=== PATIENT | male | born 1985 | race Caucasian/White ===

== ENCOUNTER → 2020-10-09 10:03 | Outpatient (BNVA) | payer OTHER, SELFPAY | PROVIDERS: PCP Internal Medicine; Visit Provider Surgery | DX: L72.11 Pilar cyst (principal) | CPT/HCPCS: 99202 ==

== ENCOUNTER 2020-10-22 12:29 | Outpatient (REF) | payer OTHER, SELFPAY ==
[2020-10-22 12:32] VITALS: BP 152/91; PULSE 99; RESP 19; TEMP 36.5; O2SAT 97; BMI 29.5
--- NOTE | 2020-10-22 13:12 | W.PM.OPN ---
Operative Note Operative Note Date of Service: 10/22/20 Narrative: PROCEDURE: EXC. OF SCALP CYSTS X 2 PREOP DX: SCALP CYSTS X 2 POSTOP DX: SAME SURGEON:MELLISSA NOVOA MD 35M here for excision of 2 scalp cysts. He was seen in the office for 2 scalp cysts each about 1.5 cm in diameter. He wanted to proceed with excision and he understood the technique of excision of these cysts under local anesthesia. He was aware of the risks, benefits and alternatives and had given consent. He was brought to the Minor Procedure and placed in reclining position. One cyst was near the midline on the crown of his head and the other was to the right of this. These areas were prepped and draped. Lidocaine 1% was used for local anesthesia. I made an incision on the skin overlying the cyst on the midline using a blade 15. This was carefully carried down through the full thcikness of the skin until a cyst capsule was visualized. I then sharply dissected the cyst capsule off of the rest of the subcutaneous layer all the way posteriorly until I was able to deliver this. This was sent as a specimen. I closed the incision with full thickness nylon 3-0 sutures. I then infiltrated the area of the 2nd cyst with Lidocaine 1%. I made an incision on the skin using a rosalba 15 and crried this down through the fullthickness of the skin until a capsule was visulaized. i sharply disssected the capsule off of the subcutaneous layer with scissors until this was delivered completely. This was sent as a specimen. I clsoed the incision with full thickness nylo 3-0 sutures as well. He tolerated the procedure well. Bacitracin oitnment was applied. EBL was 3 cc. He was given wound care instructions.
--- NOTE | 2020-10-22 13:22 | PM.OP ---
Brief Operative Note Date of Service: 10/22/20 Pre-op diagnosis: SCALP CYSTS X 2 Post-op diagnosis: same Procedure: EXC OF SCALP CYSTS X 2 UNDER LOCAL ANESTHESIA Surgeon: Tariq Delgado MD Anesthesia: local Estimated blood loss (mL): 3 Pathology: other (SCALP CYSTS) Condition: stable Disposition: other (HOME)
== END 2020-10-22 12:30 | disposition home or self-care (01) ==
LOC: HO.MS 12:29
PROVIDERS: PCP Internal Medicine; Visit Provider Surgery
PROC: (CPT 11422; principal; 2020-10-22 13:00)
DX: L72.11 Pilar cyst (principal); F43.10 Post-traumatic stress disorder, unspecified; F32.9 Major depressive disorder, single episode, unspecified; Z79.899 Other long term (current) drug therapy; Z88.8 Allergy status to other drugs, medicaments and biological substances
CPT/HCPCS: 11422 ×2; 88304

== ENCOUNTER → 2020-11-05 10:23 | Outpatient (BNVA) | payer OTHER, SELFPAY | PROVIDERS: PCP Internal Medicine; Visit Provider Surgery | DX: L72.11 Pilar cyst (principal) | CPT/HCPCS: 99212 ==

== ENCOUNTER 2020-12-18 11:45 | Outpatient (RCR) | payer OTHER, SELFPAY ==
[2020-11-26 12:33] VITALS: BMI 29.5
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
--- NOTE | 2020-11-28 08:30 | PC.NURSE ---
I called and left a message with the client therapist requesting that he return my call.
--- NOTE | 2020-11-28 14:43 | PC.NURSE ---
case opened in treatment team
--- NOTE | 2020-12-01 14:58 | HO.PHPPROGNO ---
Subjective Subjective Date of Service: 12/11/20 Reason For Visit: depression Interim History: Pt reports increased symptoms of depression. He reports poor sleep. He endorses anhedonia and feeling hopeless. He reports he has been on abilify which has been partially helpful. He denies SI/HI. Diagnostics Vital Signs (24Hr): Body Mass Index 29.5 Assessment & Plan Assessment & Plan (1) Bipolar disorder: Status: Acute Code(s): F31.9 - Bipolar disorder, unspecified Assessment and Plan: 1. continue abilify 2. start remeron 15mg po qhs. Certification I certify that partial hospital treatment is medically necessary due to the symptoms and problems resulting from the patient's mental illness and the failure to treat the patient at the partial hospital level of care would likely result in the patient requiring inpatient psychiatric care which could not be prevented at a less intensive level of care. Greater than 50% of the session was spent on counseling and/or coordination of care Discharge Plan Discharge Attending provider: Demetris Ruiz Medications: Continued aripiprazole [Abilify] 10 mg tablet 10 mg PO DAILY Qty: 14 RF: 0 Held trazodone 100 mg tablet 200 mg PO BEDTIME RF: 0 Hold Instructions: Pt to trial Mirtazapine (Remeron). Will hold effective 11/26/20. Discontinued aripiprazole 2 mg tablet 2 mg PO DAILY RF: 0 No Action hydroxyzine pamoate 50 mg capsule 100 mg PO QID PRN (Reason: Anxiety) RF: 0 atomoxetine 40 mg capsule 40 mg PO QAM RF: 0 sumatriptan succinate 100 mg tablet 100 mg PO DIRECTED RF: 0 carbamazepine 200 mg capsule, ER multiphase 12 hr 400 mg PO BID RF: 0 Telehealth Telehealth Location of provider rendering services: practice address Location of patient: address on file Patient Identification confirmed using: Name, : Yes Telehealth method: video Patient verbally consented to treatment: Yes Patient verbally consented to billing insurance company: Yes Patient informed of any privacy concerns related to visit: Yes Time spent with patient (mins): 15
--- NOTE | 2020-12-09 12:45 | PC.NURSE ---
Reminded patient that he has lab work ordered that needs to be completed at [facility].
--- NOTE | 2020-12-09 14:31 | HO.PHPPROGNO ---
Subjective Subjective Date of Service: 12/09/20 Reason For Visit: depression Interim History: Reports adverse response to Remeron with increased agitation, aggression and mood lability. Discussed his failures with antidepressant trials. States his mood can be OK one moment then he can shut down quickly and become agitated. Reports VANIA-sleeping 12a-5a, often awake by 3am. Appetite unchanged, denies SI plan or intent, denies medical issues and denies substance use. Dr. Chen joined our meeting and discussed bipolar disorder with pt. Medication Compliance: Yes Side effects from medications: Yes (Remeron) Attending Groups: Yes Review of Systems Review of Systems Yes all other systems are reviewed and are negative (denies) Reports behavioral changes Psychiatric: Reports abnormal sleep pattern, Reports behavioral changes, Reports irritability, Reports mood swings and Reports suicidal ideation (denies SI, plan, intent) Mental Status Exam Mental Status Exam Patient Appearance: Appropriate Patient Orientation: Person, Place and Situation Level of Consciousness: Alert Patient Behavior: Appropriate, Talkative and Cooperative Mood Description: Labile (per pt report) Affect Description: Flat Patient Cognition Impaired: No Ability to Follow Directions: Good Speech Pattern: Clear and Spontaneous Speech Memory Description: Intact Hallucinations: None Delusions: Not Present Thought Process: Intact Thought Content: positive for Intact Depressive Symptoms: Difficulty Sleeping Judgement: Good Diagnostics Vital Signs (24Hr): Body Mass Index 29.5 Assessment & Plan Assessment & Plan (1) PTSD (post-traumatic stress disorder): Status: Acute Code(s): F43.10 - Post-traumatic stress disorder, unspecified (2) Bipolar disorder: Status: Acute Code(s): F31.9 - Bipolar disorder, unspecified Assessment and Plan: Discontinue Remeron Increase Abilify to 10 mg daily Certification I certify that partial hospital treatment is medically necessary due to the symptoms and problems resulting from the patient's mental illness and the failure to treat the patient at the partial hospital level of care would likely result in the patient requiring inpatient psychiatric care which could not be prevented at a less intensive level of care. Greater than 50% of the session was spent on counseling and/or coordination of care Discharge Plan Discharge Attending provider: Demetris Ruiz Medications: New mirtazapine [Remeron] 15 mg tablet 15 mg PO BEDTIME Qty: 10 RF: 0 aripiprazole [Abilify] 10 mg tablet 10 mg PO DAILY Qty: 14 RF: 0 Held trazodone 100 mg tablet 200 mg PO BEDTIME RF: 0 Hold Instructions: Pt to trial Mirtazapine (Remeron). Will hold effective 11/26/20. Discontinued aripiprazole 2 mg tablet 2 mg PO DAILY RF: 0 No Action hydroxyzine pamoate 50 mg capsule 100 mg PO QID PRN (Reason: Anxiety) RF: 0 atomoxetine 40 mg capsule 40 mg PO QAM RF: 0 sumatriptan succinate 100 mg tablet 100 mg PO DIRECTED RF: 0 carbamazepine 200 mg capsule, ER multiphase 12 hr 400 mg PO BID RF: 0 Telehealth Telehealth Location of provider rendering services: practice address Location of patient: address on file Patient Identification confirmed using: Name, : Yes Telehealth method: video Patient verbally consented to treatment: Yes Patient verbally consented to billing insurance company: Yes Patient informed of any privacy concerns related to visit: Yes Time spent with patient (mins): 15
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
--- NOTE | 2020-12-16 14:19 | HO.PHPPROGNO ---
Subjective Subjective Date of Service: 12/16/20 Reason For Visit: depression Interim History: The patient had reported improvement of mood lability during the day but he still has some residual irritability, especially in the afternoon. No evidence of side effects with Abilify 10 mg and he agreed to increase it up to 15 mg po daily in order to assure mood stability, fully aware of the risks and benefits. Medication Compliance: Yes Side effects from medications: Yes Review of Systems Review of Systems Yes all other systems are reviewed and are negative Mental Status Exam Mental Status Exam Patient Appearance: Well Grooomed Patient Orientation: Person, Place, Time and Situation Level of Consciousness: Awake and Appropriate Patient Behavior: Appropriate Mood Description: Calm Affect Description: Relaxed Patient Cognition Impaired: No Ability to Follow Directions: Good Speech Pattern: Clear Memory Description: Intact Hallucinations: None Delusions: Not Present Thought Process: Goal Oriented Thought Content: positive for Intact Judgement: Fair Diagnostics Vital Signs (24Hr): Body Mass Index 29.5 Assessment & Plan Assessment & Plan (1) Bipolar disorder: Status: Acute Code(s): F31.9 - Bipolar disorder, unspecified Assessment and Plan: Increase Abilify up to 15 mg po daily Keep rest the same. F/U with regular prescriber Certification I certify that partial hospital treatment is medically necessary due to the symptoms and problems resulting from the patient's mental illness and the failure to treat the patient at the partial hospital level of care would likely result in the patient requiring inpatient psychiatric care which could not be prevented at a less intensive level of care. Greater than 50% of the session was spent on counseling and/or coordination of care Discharge Plan Discharge Attending provider: Demetris Ruiz Medications: New aripiprazole [Abilify] 15 mg tablet 15 mg PO DAILY Qty: 30 RF: 0 Held trazodone 100 mg tablet 200 mg PO BEDTIME RF: 0 Hold Instructions: Pt to trial Mirtazapine (Remeron). Will hold effective 11/26/20. Discontinued aripiprazole 2 mg tablet 2 mg PO DAILY RF: 0 No Action hydroxyzine pamoate 50 mg capsule 100 mg PO QID PRN (Reason: Anxiety) RF: 0 atomoxetine 40 mg capsule 40 mg PO QAM RF: 0 sumatriptan succinate 100 mg tablet 100 mg PO DIRECTED RF: 0 carbamazepine 200 mg capsule, ER multiphase 12 hr 400 mg PO BID RF: 0 Telehealth Telehealth Location of provider rendering services: practice address Location of patient: address on file Patient Identification confirmed using: Name, : Yes Telehealth method: video Patient verbally consented to treatment: Yes Patient verbally consented to billing insurance company: Yes Patient informed of any privacy concerns related to visit: Yes Time spent with patient (mins): 15
--- NOTE | 2020-12-17 12:05 | PC.NURSE ---
Addendum entered by Christianne Suarez RN 12/17/20 12:13: Discard previous note written on 12/17/20 at 12:[address] Sommer on Tuesday12/16/20. Original Note: Patient's last day is today and was scheduled to see the prescriber Dr Sommer at 2:20 pm however patient declined the invitation email to meet with the prescriber and emailed Chanel Yanes and stated he will not be in the last group as something came up with his kids that he needs to deal with.
--- NOTE | 2020-12-18 14:50 | PC.NURSE ---
I called and spoke with Aryan Salas about clients discharge plans.
== END 2020-12-18 23:55 | disposition home or self-care (01) ==
LOC: HO.PHPA 11:45
PROVIDERS: Visit Provider Psychiatry & Neurology Psychiatry
DX: F43.10 Post-traumatic stress disorder, unspecified (principal); F31.9 Bipolar disorder, unspecified
CPT/HCPCS: 90791; 90853; 99213

== ENCOUNTER 2021-04-06 11:30 | Outpatient (RCR) | payer OTHER, SELFPAY ==
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
--- NOTE | 2021-03-11 13:29 | PC.ADMIT ---
35 year old male admit to [facility] with diagnosis of Bipolar, PTSD, Depression, Anxiety. Patient in agreement to complete nursing assessment via telehealth. Patient reports increased anxiety and worsening depression, Denies SI, HI. Denies AH,VH. Patient reports feeling disconnected States anxiety is high and meds have not been working. Reports he has been isolating, pacing, agitated with paranoia. Patient denies any current medical issues has hx of Seizures (no seizure x 1 year) Pilar cysts, Glaucoma, ocular migraine.Surgical hx: dermoid cyst excision. Patient has never smoked. No alcohol for 2 years. Reports no change in appetite and no recent weight change. No falls in last three months. Patient reports sleep disturbance. sleeps only 4 hrs a night. Patient does not drink alcohol and doesnt Patient is alert, affect appropriate, reports increased anxiety and depression. All medications verified at [facility].
--- NOTE | 2021-03-13 07:59 | PC.NURSE ---
Case opened in treatment team
--- NOTE | 2021-03-16 11:13 | HO.PHPPROGNO ---
Subjective Subjective Date of Service: 03/16/21 Reason For Visit: Bipolar, PTSD, Depression, Anxiety Medical Problems Affecting Mental Status: No Interim History: Liban reports that he is doing well with the increased Abilify regarding mood symptoms. However, he reports that around 14:23, he begins to shut down , and disengage is from family. He reports that as slowing down. We reviewed medications including Strattera. He reports that he takes Strattera at 07:00. Patient is currently on 60 mg daily dose. We discussed increasing that dose to 80 mg, and possibly trying to take it an hour later in the morning. Patient has not yet had Tegretol level and LFTs completed, states he plans to have this done this week. Medication Compliance: Yes Side effects from medications: No Attending Groups: Yes Review of Systems Constitutional: Reports no additional constitutional complaints Comments: No weight loss, fever, chills, weakness or fatigue. Mental Status Exam Mental Status Exam Narrative: Well-groomed, well-nourished male, in no apparent distress. Patient Appearance: Well Grooomed and Appropriate Patient Orientation: Person, Place, Time and Situation Level of Consciousness: Awake, Appropriate and Alert Patient Behavior: Appropriate and Anxious ( Some slight anxiety noted.) Mood Description: Appropriate and Anxious (slight) Affect Description: Appropriate and Anxious (slight) Patient Cognition Impaired: No Ability to Follow Directions: Excellent Speech Pattern: Clear Memory Description: Intact Hallucinations: None Delusions: Not Present Thought Process: Intact Thought Content: positive for Intact Depressive Symptoms: Increased Anxiety, Insomnia, Diff. Making Decisions and Loss of Int. in Activity Judgement: Good Diagnostics Vital Signs (24Hr): Body Mass Index 0.3 Assessment & Plan Assessment & Plan (1) Depression: Status: Acute Code(s): F32.9 - Major depressive disorder, single episode, unspecified Assessment and Plan: Patient reports he feels as if he is doing well until around 2 or 15:00 , where he began begins to shut down . Asking for med change. Patient recently had increase of Abilify. Also awaiting Tegretol level and LFTs. Patient describes late afternoon wanting to disengage and not fully participate in family activities, etc. Discussion Strattera. Patient willing to try increase from 60 mg daily to 80 mg daily. Patient instructed to lower dose back to 60 mg if he experiences any type of swide effects from the increased dose. Prescription sent to pharmacy. Plan to check in with patient Tuesday. Patient educated on: diagnosis, medication risk/benefits and therapeutic strategies Informed Consent: understands Reason for contiued partial hosp. stay Substantial Risk for: inability to function Certification I certify that partial hospital treatment is medically necessary due to the symptoms and problems resulting from the patient's mental illness and the failure to treat the patient at the partial hospital level of care would likely result in the patient requiring inpatient psychiatric care which could not be prevented at a less intensive level of care. Greater than 50% of the session was spent on counseling and/or coordination of care Discharge Plan Discharge Attending provider: Kale Sommer Medications: New aripiprazole [Abilify] 20 mg tablet 20 mg PO DAILY Qty: 14 RF: 0 eszopiclone [Lunesta] 2 mg tablet 2 mg PO BEDTIME 14 Days Qty: 14 RF: 0 atomoxetine 80 mg capsule 80 mg PO QAM 7 Days Qty: 7 RF: 0 Discontinued aripiprazole [Abilify] 15 mg tablet 15 mg PO DAILY Qty: 30 RF: 0 eszopiclone [Lunesta] 1 mg Tablet 1 mg PO BEDTIME RF: 0 atomoxetine [Strattera] 60 mg Capsule 60 mg PO QAM RF: 0 No Action hydroxyzine pamoate 50 mg capsule 100 mg PO QID PRN (Reason: Anxiety) RF: 0 sumatriptan succinate 100 mg tablet 100 mg PO DIRECTED RF: 0 carbamazepine 200 mg capsule, ER multiphase 12 hr 400 mg PO BID RF: 0 Telehealth Telehealth Location of provider rendering services: practice address Location of patient: address on file Patient Identification confirmed using: Name, : Yes Telehealth method: video Patient verbally consented to treatment: Yes Patient verbally consented to billing insurance company: Yes Patient informed of any privacy concerns related to visit: Yes Time spent with patient (mins): 15
--- NOTE | 2021-03-18 13:04 | PC.NURSE ---
Reminded patient he has lab orders due including a Tegretol level. Patient unable to remember the last time he had a Tegretol level done. Patient reports taking medications as prescribed. Education provided about the importance of completing lab work. 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 Clarified with patient regarding ocular seizures and patient stated he has ocular migraines which could cause a seizure and reports having 2 ocular migraines recently however reports last Tonic Clonic Seizure was 1 year ago. Patient reports he has an appointment with neurology today. Patient has had seizure d/o since age 14. Staff aware to call , who is home with patient, if patient has a Tonic Clonic seizure, consisting of convulsions and losing consciousness, while in group. If unable to get a hold of call 911. Note time when seizure started and when seizure ended.
--- NOTE | 2021-03-20 13:42 | P.PNPSP_ITS ---
Subjective Subjective Date of Service: 03/20/21 Reason For Visit: Bipolar, PTSD, Depression, Anxiety Subjective Notes: Ibrahim Warning Guardianship: No Medical Problems Affecting Mental Status: No Interim History: Time reports that he was still experiencing symptoms regarding poor attention and concentration later in the daytime, after Strattera a.m. dose had been increased. He did 1 day take 60 mg in the mornin g and 40 mg in the afternoon. He states that this was tremendously helpful. Requesting this medication dosing going forward. Denies any medication side effects. He reports that he feels his mood has been more stable this past week. He denies any type of safety issues, no thoughts of harm to self or others. Describes his mood as somewhere in the middle when asked. States he has not had any migraines since last week. He reports that his other providers are changing his Imitrex, and he will notify PHP RN once he knows with the new medication is. Patient requests refill of Lunesta 2 mg. he reports that regarding refills, he needs the new dosing of Strattera, the refill of Lunesta. He states he has adequate supplies of his other medications. Medication Compliance: Yes Side effects from medications: No Attending Groups: Yes Review of Systems Review of Systems A review of systems was completed, patient offers no complaints. Yes all other systems are reviewed and are negative Reports other ( Reports has not experienced a migraine since sometime last week.) Mental Status Exam Mental Status Exam Narrative: Well-developed, well-nourished male, in no apparent distress. Patient Appearance: Well Grooomed and Appropriate Patient Orientation: Person, Place, Time and Situation Level of Consciousness: Awake and Appropriate Patient Behavior: Appropriate and Cooperative Mood Description: Appropriate, Depressed and Anxious Affect Description: Calm, Appropriate, Depressed and Anxious Patient Cognition Impaired: No Ability to Follow Directions: Excellent Speech Pattern: Clear and Appropriate Memory Description: Intact Hallucinations: None Delusions: Not Present Thought Process: Intact Thought Content: positive for Intact Depressive Symptoms: Difficulty Sleeping Judgement: Good Diagnostics Vital Signs (24Hr): Body Mass Index 0.3 Assessment & Plan Assessment & Plan (1) Depression: Status: Acute Code(s): F32.9 - Major depressive disorder, single episode, unspecified Assessment and Plan: patient states he believes his mood is beginning to become more stabilized, and refers to it as neither extremely depressed or extremely hypomanic / agitated / anxious. No safety concerns. Requests straterra to be order BID rather than once daily, with dose increase, as 60mg in am, 40mg in afternoon. Also requests refill of lunesta 2mg for sleep. Scripts sent to pharmacy. Plan to follow up as per protocol. Certification I certify that partial hospital treatment is medically necessary due to the symptoms and problems resulting from the patient's mental illness and the failure to treat the patient at the partial hospital level of care would likely result in the patient requiring inpatient psychiatric care which could not be prevented at a less intensive level of care. Greater than 50% of the session was spent on counseling and/or coordination of care Discharge Plan Discharge Attending provider: Kale Sommer Medications: New aripiprazole [Abilify] 20 mg tablet 20 mg PO DAILY Qty: 14 RF: 0 atomoxetine [Strattera] 60 mg capsule 60 mg PO QAM 7 Days Qty: 7 RF: 0 atomoxetine [Strattera] 40 mg capsule See Rx Instructions .ROUTE .COMPLEX MDD 100mg 7 Days Qty: 7 RF: 0 Continued eszopiclone [Lunesta] 2 mg tablet 2 mg PO BEDTIME 14 Days Qty: 14 RF: 0 carbamazepine 200 mg capsule, ER multiphase 12 hr 400 mg PO BID RF: 0 Discontinued aripiprazole [Abilify] 15 mg tablet 15 mg PO DAILY Qty: 30 RF: 0 eszopiclone [Lunesta] 1 mg Tablet 1 mg PO BEDTIME RF: 0 atomoxetine [Strattera] 60 mg Capsule 60 mg PO QAM RF: 0 No Action hydroxyzine pamoate 50 mg capsule 100 mg PO QID PRN (Reason: Anxiety) RF: 0 sumatriptan succinate 100 mg tablet 100 mg PO DIRECTED RF: 0 Stand Alone Forms: Patient Portal Discharge page Telehealth Telehealth Location of provider rendering services: practice address Location of patient: address on file Patient Identification confirmed using: Name, : Yes Telehealth method: video Patient verbally consented to treatment: Yes Patient verbally consented to billing insurance company: Yes Patient informed of any privacy concerns related to visit: Yes Time spent with patient (mins): 15
--- NOTE | 2021-03-26 14:20 | P.PNPSP_ITS ---
Subjective Subjective Date of Service: 03/26/21 Reason For Visit: Bipolar, PTSD, Depression, Anxiety Subjective Notes: Ibrahim Warning Guardianship: No Medical Problems Affecting Mental Status: No Interim History: Time reports his mood as okay today. States that he feels the Abilify is helping. States that the increased Strattera dosing is helping to maintain focus during the day. States that however after dinner he notes that my mood starts to swing again . He reports that he tends to take things personally, especially whenever there is any type of conflict with his . We discussed current medication medication and doses, as well as other techniques regarding improving coping skills through therapy, as well as increased exercise in afternoon, to help manage ADHD symptoms as well as agitation. He stated that he believes continued therapy will be beneficial to him, especially regarding his relationship with his . He states he would like to remain with current medications and doses this week. No safety concerns, no thoughts of harm to self or others. Request refill for Abilify 20 mg. Medication Compliance: Yes Side effects from medications: No Attending Groups: Yes Review of Systems Review of Systems A review of systems was completed and was negative. Yes all other systems are reviewed and are negative Mental Status Exam Mental Status Exam Narrative: Well-groomed, well-nourished male, in no apparent distress. Sitting up in chair during encounter, good eye contact, speech articulate, alert and oriented x4. Patient Appearance: Well Grooomed and Appropriate Patient Orientation: Person, Place, Time and Situation Level of Consciousness: Awake, Appropriate and Alert Patient Behavior: Appropriate, Cooperative and Good Eye Contact Mood Description: Appropriate, Depressed and Anxious Affect Description: Appropriate, Depressed and Anxious Patient Cognition Impaired: No Ability to Follow Directions: Excellent Speech Pattern: Clear and Appropriate Memory Description: Intact Hallucinations: None Delusions: Not Present Thought Process: Intact, Goal Oriented and Linear Thought Content: positive for Intact, positive for Linear and positive for Logical Depressive Symptoms: Increased Anxiety, Increased Irritability and Feelings of Guilt Abnormal Motor Activity Signs and Symptoms: Agitation ( Reports feeling agitated / restless in the evenings, states that he finds himself argumentative and shuts down at that time. ) Judgement: Good Diagnostics Vital Signs (24Hr): Body Mass Index 0.3 Assessment & Plan Assessment & Plan (1) Bipolar disorder: Status: Acute Code(s): F31.9 - Bipolar disorder, unspecified Assessment and Plan: Patient reports increased mood stability with increased dose of Abilify to 20 mg, which occurred last week. Patient also now taking increased Strattera to 60mg in am, 40mg in afternoon, X1 week. He reports that these are helping. Request refill of Abilify, script sent to pharmacy via electronically. PLAN: Continue medications as prescribed. Abilify refill sent to pharmacy. Follow up in 1 week, sooner if needed. (2) Anxiety: Status: Acute Code(s): F41.9 - Anxiety disorder, unspecified Assessment and Plan: Patient notices increase in anxiety / agitation in early evening hours. D iscussed strategies to help expel this energy, including some type of aerobic exercise such as a brisk walk, or any other type of movement for approximately 20 minutes. Patient happy with current medications and doses. PLAN: Continue medications as prescribed. Abilify refill sent to pharmacy. Follow up in 1 week, sooner if needed. Certification I certify that partial hospital treatment is medically necessary due to the symptoms and problems resulting from the patient's mental illness and the failure to treat the patient at the partial hospital level of care would likely result in the patient requiring inpatient psychiatric care which could not be prevented at a less intensive level of care. Greater than 50% of the session was spent on counseling and/or coordination of care Discharge Plan Discharge Attending provider: Kale Sommer Medications: New atomoxetine [Strattera] 60 mg capsule 60 mg PO QAM 7 Days Qty: 7 RF: 0 atomoxetine [Strattera] 40 mg capsule See Rx Instructions .ROUTE .COMPLEX MDD 100mg 7 Days Qty: 7 RF: 0 aripiprazole [Abilify] 20 mg tablet 20 mg PO DAILY 14 Days Qty: 14 RF: 0 Continued eszopiclone [Lunesta] 2 mg tablet 2 mg PO BEDTIME 14 Days Qty: 14 RF: 0 carbamazepine 200 mg capsule, ER multiphase 12 hr 400 mg PO BID RF: 0 Discontinued aripiprazole [Abilify] 15 mg tablet 15 mg PO DAILY Qty: 30 RF: 0 eszopiclone [Lunesta] 1 mg Tablet 1 mg PO BEDTIME RF: 0 atomoxetine [Strattera] 60 mg Capsule 60 mg PO QAM RF: 0 No Action hydroxyzine pamoate 50 mg capsule 100 mg PO QID PRN (Reason: Anxiety) RF: 0 sumatriptan succinate 100 mg tablet 100 mg PO DIRECTED RF: 0 Stand Alone Forms: Patient Portal Discharge page Telehealth Telehealth Location of provider rendering services: practice address Location of patient: address on file Patient Identification confirmed using: Name, : Yes Telehealth method: video Patient verbally consented to treatment: Yes Patient verbally consented to billing insurance company: Yes Patient informed of any privacy concerns related to visit: Yes Time spent with patient (mins): 15
--- NOTE | 2021-04-01 13:14 | P.PNPSP_ITS ---
Subjective Subjective Date of Service: 04/01/21 Reason For Visit: Bipolar, PTSD, Depression, Anxiety Interim History: The patient reports that he is doing fine, content with the current regimen. Review of Systems Acute medical concerns: No Medical Review of Systems: unchanged Mental Status Exam Mental Status Exam Patient Appearance: Well Grooomed Patient Orientation: Person, Place, Time and Situation Level of Consciousness: Awake Patient Behavior: Appropriate Mood Description: Calm Affect Description: Calm Patient Cognition Impaired: No Ability to Follow Directions: Good Speech Pattern: Clear Memory Description: Intact Hallucinations: None Delusions: Not Present Thought Process: Goal Oriented Thought Content: positive for Intact Judgement: Fair Diagnostics Vital Signs (24Hr): Body Mass Index 0.3 Assessment & Plan Assessment & Plan (1) Bipolar disorder: Status: Acute Code(s): F31.9 - Bipolar disorder, unspecified Assessment and Plan: Adult male with bipolar disorder referred to [facility] for exacerbation of symptoms, so far, much better since medications were adjusted. Plan Keep same treatment Certification I certify that partial hospital treatment is medically necessary due to the symptoms and problems resulting from the patient's mental illness and the failure to treat the patient at the partial hospital level of care would likely result in the patient requiring inpatient psychiatric care which could not be prevented at a less intensive level of care. Greater than 50% of the session was spent on counseling and/or coordination of care Discharge Plan Discharge Attending provider: Kale Sommer Medications: New atomoxetine [Strattera] 60 mg capsule 60 mg PO QAM 7 Days Qty: 7 RF: 0 atomoxetine [Strattera] 40 mg capsule See Rx Instructions .ROUTE .COMPLEX MDD 100mg 7 Days Qty: 7 RF: 0 aripiprazole [Abilify] 20 mg tablet 20 mg PO DAILY 14 Days Qty: 14 RF: 0 Continued eszopiclone [Lunesta] 2 mg tablet 2 mg PO BEDTIME 14 Days Qty: 14 RF: 0 carbamazepine 200 mg capsule, ER multiphase 12 hr 400 mg PO BID RF: 0 Discontinued aripiprazole [Abilify] 15 mg tablet 15 mg PO DAILY Qty: 30 RF: 0 eszopiclone [Lunesta] 1 mg Tablet 1 mg PO BEDTIME RF: 0 atomoxetine [Strattera] 60 mg Capsule 60 mg PO QAM RF: 0 No Action hydroxyzine pamoate 50 mg capsule 100 mg PO QID PRN (Reason: Anxiety) RF: 0 sumatriptan succinate 100 mg tablet 100 mg PO DIRECTED RF: 0 Stand Alone Forms: Patient Portal Discharge page Telehealth Telehealth Location of provider rendering services: practice address Location of patient: address on file Patient Identification confirmed using: Name, : Yes Telehealth method: video Patient verbally consented to treatment: Yes Patient verbally consented to billing insurance company: Yes Patient informed of any privacy concerns related to visit: No Time spent with patient (mins): 15
--- NOTE | 2021-04-06 14:43 | PC.NURSE ---
Patient discharged 04/06/2021 from [facility]. Patient states he is ready for discharge. No safety issues. Patient met with [address] APRN re: medication, discharge. Patient verbalizes understanding of discharge plan.
--- NOTE | 2021-04-06 14:55 | HO.PHPPROGNO ---
Subjective Subjective Date of Service: 04/06/21 Reason For Visit: Bipolar, PTSD, Depression, Anxiety Subjective Notes: Ibrahim Warning and Conditional Voluntary Guardianship: No Medical Problems Affecting Mental Status: No Interim History: Time reports overall feeling ?good? today. This is his last day in PHP program. He states that his ADD is better controlled with the increased Strattera, he reports that the Abilify 20 mg is working well, and the Lunesta at 2 mg is helping him sleep at night. He is requesting refills, as he does not see his outpatient provider right away, and he has only a few days' supply of the lunesta, straterra 40mg, and the abilify 20mg. He states that he does not need any other refills at this time. He states he feels he has gained stronger coping skills during this PHP, and that he feels ready for discharge at this time. Medication Compliance: Yes Side effects from medications: No Attending Groups: Yes Review of Systems Review of Systems A full review of systems was completed and was negative with the exception of pertinent positives noted in history of the presenting illness. Yes all other systems are reviewed and are negative Constitutional: Reports no additional constitutional complaints Mental Status Exam Mental Status Exam Narrative: Overall patient appears well nourished, well developed, in no apparent distress. Patient Appearance: Well Grooomed and Appropriate Patient Orientation: Person, Place, Time and Situation Level of Consciousness: Awake, Appropriate and Alert Patient Behavior: Appropriate, Cooperative and Good Eye Contact Mood Description: Appropriate Affect Description: Appropriate and Anxious (some slight anxiety noted. ) Patient Cognition Impaired: No Ability to Follow Directions: Excellent Speech Pattern: Clear Memory Description: Intact Hallucinations: None Delusions: Not Present Thought Process: Intact, Goal Oriented and Linear Thought Content: positive for Intact, positive for Goal Oriented and positive for Linear Depressive Symptoms: Increased Anxiety Judgement: Good Diagnostics Vital Signs (24Hr): Body Mass Index 0.3 Assessment & Plan Assessment & Plan (1) Bipolar disorder: Status: Acute Code(s): F31.9 - Bipolar disorder, unspecified (2) Depression: Status: Acute Code(s): F32.9 - Major depressive disorder, single episode, unspecified Assessment and Plan: Patient reports that overall his symptoms have improved, is feeling much less depressed and anxious. Feels stable for discharge, hopeful for the future. Patient is requesting medication refills including Abilify, Strattera, Lunesta. Scripts sent to his pharmacy for 30 day supply, as patient does not have appointment with outpatient provider until then. No other concerns at this time, no safety concerns. (3) PTSD (post-traumatic stress disorder): Status: Acute Code(s): F43.10 - Post-traumatic stress disorder, unspecified (4) Anxiety: Status: Acute Code(s): F41.9 - Anxiety disorder, unspecified Patient educated on: diagnosis, medication risk/benefits and therapeutic strategies Informed Consent: understands Reason for contiued partial hosp. stay Substantial Risk for: stable for discharge Certification I certify that partial hospital treatment is medically necessary due to the symptoms and problems resulting from the patient's mental illness and the failure to treat the patient at the partial hospital level of care would likely result in the patient requiring inpatient psychiatric care which could not be prevented at a less intensive level of care. Greater than 50% of the session was spent on counseling and/or coordination of care Discharge Plan Discharge Attending provider: Kale Sommer Medications: New atomoxetine [Strattera] 60 mg capsule 60 mg PO QAM 7 Days Qty: 7 RF: 0 aripiprazole [Abilify] 20 mg tablet 20 mg PO DAILY 30 Days Qty: 30 RF: 0 atomoxetine [Strattera] 40 mg capsule See Rx Instructions .ROUTE .COMPLEX 30 Days Qty: 30 RF: 0 eszopiclone [Lunesta] 2 mg tablet 2 mg PO BEDTIME 30 Days Qty: 30 RF: 0 Continued carbamazepine 200 mg capsule, ER multiphase 12 hr 400 mg PO BID RF: 0 Discontinued aripiprazole [Abilify] 15 mg tablet 15 mg PO DAILY Qty: 30 RF: 0 eszopiclone [Lunesta] 1 mg Tablet 1 mg PO BEDTIME RF: 0 atomoxetine [Strattera] 60 mg Capsule 60 mg PO QAM RF: 0 No Action hydroxyzine pamoate 50 mg capsule 100 mg PO QID PRN (Reason: Anxiety) RF: 0 sumatriptan succinate 100 mg tablet 100 mg PO DIRECTED RF: 0 Stand Alone Forms: Patient Portal Discharge page Telehealth Telehealth Location of provider rendering services: practice address Location of patient: address on file Patient Identification confirmed using: Name, : Yes Telehealth method: video Patient verbally consented to treatment: Yes Patient verbally consented to billing insurance company: Yes Patient informed of any privacy concerns related to visit: Yes Time spent with patient (mins): 15
== END 2021-04-07 07:25 | disposition home or self-care (01) ==
LOC: HO.PHPA 11:30
PROVIDERS: Visit Provider Psychiatry & Neurology Psychiatry
DX: F31.9 Bipolar disorder, unspecified (principal); F43.10 Post-traumatic stress disorder, unspecified; Z79.899 Other long term (current) drug therapy
CPT/HCPCS: 90791; 90853

== ENCOUNTER 2021-11-27 08:59 | Outpatient (RCR) | payer OTHER, SELFPAY ==
--- NOTE | 2021-11-30 10:01 | PC.NURSE ---
Patient was scheduled to start PHP today however patient emailed staff and stated he was admitted to [facility] in [facility] thus is not able to attend.
== END 2021-12-01 23:59 ==
LOC: HO.PHPA 08:59
PROVIDERS: Visit Provider Psychiatry & Neurology Psychiatry
DX: F31.4 Bipolar disorder, current episode depressed, severe, without psychotic features (principal); F43.12 Post-traumatic stress disorder, chronic; Z79.899 Other long term (current) drug therapy
CPT/HCPCS: 90791

== ENCOUNTER 2022-01-04 08:00 | Outpatient (RCR) | payer OTHER, SELFPAY ==
[2021-12-18 11:20] VITALS: BMI 28.0
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
--- NOTE | 2021-12-18 13:49 | PC.ADMIT ---
Patient is a 36 year old male who self referred to [facility] from [facility]. Patient initially was scheduled for an assessment at [facility] however needed [facility] level of care prior to the appointment. Patient has been to [facility] in the past and found it helpful. He has a diagnosis of Bipolar disorder current episode depressed. Patient reports he continues to struggle with significant depressive sxs along with increased anxiety and PTSD sxs. Patient reported having passive SI a few days a week with no plan or intent however denied having thoughts today. Patient has the crisis number if needed and reports his whom he lives with is supportive. Emailed patient a copy of his safety plan if needed. Patient unable to identify a trigger to his current mood and reports feeling this way for a few months. Patient reports that [facility] was helpful however is continuing to struggle with mood instability. Patient is alert and oriented x4. Calm and cooperative. Presents with depressed mood, flat affect. Medications reconciled with patient and patient's pharmacy. Patient reports taking medications as prescribed.
--- NOTE | 2021-12-22 08:02 | PC.NURSE ---
Case opened in treatment team
--- NOTE | 2021-12-23 12:10 | P.PNPSP_ITS ---
Subjective Subjective Date of Service: 12/23/21 Reason For Visit: bipolar, depression, PTSD chronic Guardianship: No Medical Problems Affecting Mental Status: No Interim History: Describes mood as ?still pretty anxious Also continues with dysphoric mood. Finding PHP groups helpful. Denies SI/HI. Sleep continues poor, sleeping 4.5 hours per night. Reports does not really notice affect from increased Abilify yet. Interested in increasing Lunesta, starting Lamictal. Medication Compliance: Yes Side effects from medications: No Attending Groups: Yes Review of Systems Acute medical concerns: No Medical Review of Systems: unchanged Review of Systems Review of Systems Yes all other systems are reviewed and are negative Constitutional: Reports no additional constitutional complaints Mental Status Exam Mental Status Exam Narrative: Well-developed, well-nourished male, Speech regular rate and rhythm, full prosody, normal volume. Patient Appearance: Well Grooomed and Appropriate Patient Orientation: Person, Place, Time and Situation Level of Consciousness: Awake and Appropriate Patient Behavior: Appropriate, Cooperative and Good Eye Contact Mood Description: Depressed and Anxious Affect Description: Blunted and Flat Patient Cognition Impaired: No Ability to Follow Directions: Good Speech Pattern: Clear, Appropriate, Coherent and Soft-Spoken Memory Description: Intact Hallucinations: None Delusions: Not Present Thought Process: Intact Thought Content: positive for Intact Depressive Symptoms: Increased Anxiety, Difficulty Sleeping, Loss of Int. in Activity, Hopelessness, Isolating-Friends/Family, Increased Fatigue and Thoughts of /Suicide (intermittent passive, no intent/plan) Judgement: Fair Diagnostics Vital Signs (24Hr): BMI result Body Mass Index 28.0 Assessment & Plan Assessment & Plan (1) Bipolar disorder: Qualifiers: Active/Remission status: currently active Current bipolar episode type: depressed Current episode severity: moderate Qualified Code(s): F31.32 - Bipolar disorder, current episode depressed, moderate Status: Acute Code(s): F31.9 - Bipolar disorder, unspecified Assessment and Plan: Patient reports he continues with anxiety, depressed mood. Poor sleep. States sleeping approximately 4.5 hours per night. We discussed his medications in detail, including risks and benefits of any changes. He is interested in increasing dose of Lunesta. He reports he has not noticed any benefit of the increased Abilify. Would like to start low-dose Lamictal. Discussed risks and benefits, side- effects, potential adverse reactions. Patient demonstrated his understanding, asked appropriate questions. (2) PTSD (post-traumatic stress disorder): Status: Acute Code(s): F43.10 - Post-traumatic stress disorder, unspecified (3) Depression: Qualifiers: Depression Type: major depressive disorder Major depression recurrence: recurrent Active/Remission status: currently active Major depression episode severity: moderate Qualified Code(s): F33.1 - Major depressive disorder, recurrent, moderate Status: Acute Code(s): F32.9 - Major depressive disorder, single episode, unspecified (4) Anxiety: Status: Acute Code(s): F41.9 - Anxiety disorder, unspecified Plan 1. Increase Lunesta to 3 mg at bedtime. 2. Start Lamictal 25 mg daily times 14 days. 3. Continue with current [facility] plan of care. 4. Follow-up as per protocol. Patient educated on: diagnosis, medication risk/benefits and therapeutic str ategies Informed Consent: understands Reason for contiued partial hosp. stay Substantial Risk for: harm to self, inability to function, rapid decompensation and med/psych decompensation Certification I certify that partial hospital treatment is medically necessary due to the symptoms and problems resulting from the patient's mental illness and the failure to treat the patient at the partial hospital level of care would likely result in the patient requiring inpatient psychiatric care which could not be prevented at a less intensive level of care. I spent __30____ minutes with the patient and/or on the patient floor today, greater than?50% of which was spent counseling/coordinating care. Discharge Plan Discharge Attending provider: Kale Sommer Medications: New eszopiclone [Lunesta] 3 mg tablet 3 mg PO BEDTIME Qty: 7 0RF lamotrigine [Lamictal] 25 mg tablet 25 mg PO DAILY 14 Days Qty: 14 0RF Discontinued eszopiclone [Lunesta] 2 mg tablet 2 mg PO BEDTIME 30 Days Qty: 30 0RF No Action atomoxetine [Strattera] 60 mg capsule 60 mg PO QAM 7 Days Qty: 7 0RF aripiprazole [Abilify] 20 mg tablet 20 mg PO DAILY 30 Days Qty: 30 0RF aripiprazole [Abilify] 5 mg Tablet 5 mg PO DAILY 0RF Rx Instructions: Take with 20 mg tablet for a total of 25 mg carbamazepine 200 mg Tablet 500 mg PO BEDTIME 0RF Rx Instructions: Take 200 mg tablet with 300 mg tablet for total bedtime dose of 500 mg. carbamazepine 200 mg Tablet Extended Release 12 Hr 400 mg PO DAILY 0RF rizatriptan 10 mg tablet 10 mg PO DAILY MDD 2 tabs PRN (Reason: ocular migraine) 0RF Rx Instructions: Take one tab at the onset of migraine. May repeat if ineffective in 2 hrs if needed. topiramate 50 mg tablet 50 mg PO BEDTIME 0RF propranolol 20 mg tablet 20 mg PO BID PRN (Reason: anxiety) 0RF riboflavin (vitamin B2) [Vitamin B-2] 100 mg tablet 100 mg PO BID 0RF Telehealth Telehealth Location of provider rendering services: practice address Location of patient: address on file Patient Identification confirmed using: Name, : Yes Telehealth method: video Patient verbally consented to treatment: Yes Patient verbally consented to billing insurance company: Yes Patient informed of any privacy concerns related to visit: Yes Minutes spent on Phone/Video with Pt.: 20
--- NOTE | 2021-12-29 14:17 | PC.NURSE ---
I called and left a message with the clients therapist , Humphrey PRECIADO about clients progress in the program and his discharge plans.
--- NOTE | 2021-12-31 12:10 | P.PNPSP_ITS ---
Subjective Subjective Date of Service: 12/31/21 Reason For Visit: bipolar, depression, PTSD chronic Healthcare Proxy: Yes Guardianship: No Medical Problems Affecting Mental Status: No Interim History: Reports improved sleep, with increased dose of Lunesta. Reports improved mood, feels Lamictal is helping with mood stabilization. Denies any thought of harm to self or others, no SI, no safety concern. Reports tomorrow may be last day. Need refills of Lunesta, Lamictal titration Scripts. Medication Compliance: Yes Side effects from medications: No Attending Groups: Yes Review of Systems Acute medical concerns: No Medical Review of Systems: unchanged Review of Systems Review of Systems Yes all other systems are reviewed and are negative Constitutional: Reports no additional constitutional complaints Mental Status Exam Mental Status Exam Narrative: Fully alert and attentive, in NAD. Denies any SI/HI, no safety concern. Speech regular rate and rhythm, full prosody, normal volume. Mood an affect stable, brightens easily. Patient Appearance: Well Grooomed and Appropriate Patient Orientation: Person, Place, Time and Situation Level of Consciousness: Awake, Appropriate and Alert Patient Behavior: Appropriate, Cooperative and Good Eye Contact Mood Description: Calm and Appropriate Affect Description: Appropriate Patient Cognition Impaired: No Ability to Follow Directions: Excellent Speech Pattern: Clear, Appropriate and Coherent Memory Description: Intact Hallucinations: None Delusions: Not Present Thought Process: Intact Thought Content: positive for Intact Depressive Symptoms: Increased Anxiety and Loss of Int. in Activity Judgement: Good Diagnostics Vital Signs (24Hr): BMI result Body Mass Index 28.0 Assessment & Plan Assessment & Plan (1) Bipolar disorder: Qualifiers: Active/Remission status: currently active Current bipolar episode type: depressed Current episode severity: moderate Qualified Code(s): F31.32 - Bipolar disorder, current episode depressed, moderate Status: Acute Code(s): F31.9 - Bipolar disorder, unspecified Assessment and Plan: Reports improved sleep, with increased dose of Lunesta. Reports improved mood, feels Lamictal is helping with mood stabilization. Denies any thought of harm to self or others, no SI, no safety concern. Reports tomorrow may be last day. Patient states that he feels his symptoms have improved. He says that the groups have been helpful. Liban says he feels ready for discharge tomorrow. (2) PTSD (post-traumatic stress disorder): Status: Acute Code(s): F43.10 - Post-traumatic stress disorder, unspecified (3) Anxiety: Status: Acute Code(s): F41.9 - Anxiety disorder, unspecified Plan 1. Prescriptions for Lamictal, with 50 mg x 14 days, and then 100 mg thereafter, sent to pharmacy. Script for Lunesta 3 mg sent to pharmacy. 2. Continue PHP plan of care. 3. Patient appears stable for discharge tomorrow. Patient educated on: diagnosis, medication risk/benefits and therapeutic strategies Informed Consent: understands Reason for contiued partial hosp. stay Substantial Risk for: stable for discharge Certification I certify that partial hospital treatment is medically necessary due to the s ymptoms and problems resulting from the patient's mental illness and the failure to treat the patient at the partial hospital level of care would likely result in the patient requiring inpatient psychiatric care which could not be prevented at a less intensive level of care. I spent ____25__ minutes with the patient and/or on the patient floor today, greater than?50% of which was spent counseling/coordinating care. Discharge Plan Discharge Attending provider: Kale Sommer Medications: New lamotrigine [Lamictal] 25 mg tablet 25 mg PO DAILY 14 Days Qty: 14 0RF eszopiclone [Lunesta] 3 mg tablet 3 mg PO BEDTIME 30 Days Qty: 30 0RF lamotrigine 100 mg tablet 100 mg PO DAILY Qty: 30 0RF Rx Instructions: After taking lamotrigine 50mg daily for 14 days, start lamotrigine 100mg daily. lamotrigine 25 mg tablet 50 mg PO DAILY 14 Days Qty: 28 0RF Rx Instructions: after taking lamotrigine 25mg daily, take lamotrigine 50mg daily for 14 days. Then start lamotrigine 100mg daily. Discontinued eszopiclone [Lunesta] 2 mg tablet 2 mg PO BEDTIME 30 Days Qty: 30 0RF No Action atomoxetine [Strattera] 60 mg capsule 60 mg PO QAM 7 Days Qty: 7 0RF aripiprazole [Abilify] 20 mg tablet 20 mg PO DAILY 30 Days Qty: 30 0RF aripiprazole [Abilify] 5 mg Tablet 5 mg PO DAILY 0RF Rx Instructions: Take with 20 mg tablet for a total of 25 mg carbamazepine 200 mg Tablet 500 mg PO BEDTIME 0RF Rx Instructions: Take 200 mg tablet with 300 mg tablet for total bedtime dose of 500 mg. carbamazepine 200 mg Tablet Extended Release 12 Hr 400 mg PO DAILY 0RF rizatriptan 10 mg tablet 10 mg PO DAILY MDD 2 tabs PRN (Reason: ocular migraine) 0RF Rx Instructions: Take one tab at the onset of migraine. May repeat if ineffective in 2 hrs if needed. topiramate 50 mg tablet 50 mg PO BEDTIME 0RF propranolol 20 mg tablet 20 mg PO BID PRN (Reason: anxiety) 0RF riboflavin (vitamin B2) [Vitamin B-2] 100 mg tablet 100 mg PO BID 0RF Stand Alone Forms: Patient Portal Discharge page Telehealth Telehealth Location of provider rendering services: practice address Location of patient: address on file Patient Identification confirmed using: Name, : Yes Telehealth method: video Patient verbally consented to treatment: Yes Patient verbally consented to billing insurance company: Yes Patient informed of any privacy concerns related to visit: Yes Minutes spent on Phone/Video with Pt.: 20
--- NOTE | 2022-01-01 12:26 | PC.NURSE ---
Patient is discharging from the program today. Reports he feels good about discharge and believes the program was helpful along with the medication changes. No safety concerns. Reviewed patient medications with patient. Patient reports he is taking medications as prescribed and reports no issues regarding medications.
== END 2022-01-04 23:59 | disposition home or self-care (01) ==
LOC: HO.PHPA 08:00
PROVIDERS: Visit Provider Psychiatry & Neurology Psychiatry
DX: F31.32 Bipolar disorder, current episode depressed, moderate (principal); F33.1 Major depressive disorder, recurrent, moderate; F43.10 Post-traumatic stress disorder, unspecified; F41.9 Anxiety disorder, unspecified; Z79.899 Other long term (current) drug therapy
CPT/HCPCS: 90791; 90853

== ENCOUNTER → 2022-11-22 08:47 | Outpatient (BNVA) | payer MEDICARE, MEDICAID, SELFPAY | PROVIDERS: PCP Internal Medicine; Visit Provider Surgery | DX: L72.9 Follicular cyst of the skin and subcutaneous tissue, unspecified (principal) | CPT/HCPCS: 99212 ==

== ENCOUNTER 2022-11-29 11:15 | Outpatient (REF) | payer MEDICARE, MEDICAID, SELFPAY | END 2022-11-29 11:16 | disposition home or self-care (01) | LOC: HO.LNP 11:15 | PROVIDERS: PCP Internal Medicine; Visit Provider Surgery | DX: L72.3 Sebaceous cyst (principal) | CPT/HCPCS: 11422; 11423; 88304 ==

== ENCOUNTER 2022-12-06 09:30 | Emergency (ER) | payer MEDICARE, MEDICAID, SELFPAY ==
--- NOTE | ~2022-12-06 | XR_ITS ---
EXAMINATION: XR RIBS, LEFT CLINICAL INFORMATION: Left rib pain COMPARISON: None available. TECHNIQUE: 6 views of the chest and left RIBS FINDINGS: No focal consolidation. No pneumothorax. Trachea is midline. Cardiomediastinal silhouette is not enlarged. No large pleural effusion. Soft tissues are unremarkable. Osseous structures are intact. No acute visualized left-sided rib fractures. XR/XR ribs LT min 3V w CXR1V IMPRESSION: 1. No acute cardiopulmonary process. 2. No acute visualized left-sided rib fractures.
[2022-12-06 09:33] VITALS: BP 137/87; PULSE 89; RESP 19; TEMP 36.6; O2SAT 98; BMI 27.0
--- NOTE | 2022-12-06 09:47 | ED.GENADULT ---
HPI - General Adult General Chief complaint: General Medical Stated complaint: possible L side cracked ribs Time Seen by Provider: 12/06/22 09:37 Source: patient and family Mode of arrival: ambulatory Limitations: no limitations History of Present Illness HPI narrative: This is a 37 [id number], with a past medical history of seizures and depression, who presents to the emergency department with complaints of left sided rib pain status post mechanical fall on roller skates 3 days ago. He was trying new roller blades and accidentally fell backwards, and his left side of his ribs struck a brick wall. No LOC and he denies hitting his head. He admits to having some shortness of breath with exertion but finds himself splinting his left side of his ribs secondary to the pain. Denies AC therapy. Denies any abdominal pain, nausea or vomiting. No other complaints or concerns at this time. MD complaint: Left rib pain Onset (ago): day(s) Location: left (ribs) Radiation: non-radiation Severity: moderate Quality: aching Pain Consistency: constant Relieving factors: immobilization Exacerbating factors: none Associated symptoms: denies other symptoms Treatments prior to arrival: NSAID Related Data Home Medications Medication Instructions Recorded Confirmed propranolol 20 mg tablet 20 mg PO BID PRN anxiety 12/10/21 11/22/22 riboflavin (vitamin B2) 100 mg 100 mg PO BID 12/10/21 11/22/22 tablet (Vitamin B-2) rizatriptan 10 mg tablet 10 mg PO DAILY PRN ocular migraine 12/10/21 11/22/22 topiramate 50 mg tablet 50 mg PO BEDTIME 12/10/21 11/22/22 aripiprazole 5 mg tablet (Abilify) 5 mg PO DAILY 12/18/21 11/22/22 carbamazepine 200 mg tablet 500 mg PO BEDTIME 12/18/21 02/23/22 carbamazepine 200 mg 400 mg PO DAILY 12/18/21 02/23/22 tablet,extended release,12 hr atomoxetine 40 mg capsule 40 mg PO .pm 02/23/22 11/22/22 carbamazepine 200 mg 0 mg PO 11/22/22 11/22/22 capsule,extended release [id number] carbamazepine 300 mg 0 mg PO 11/22/22 11/22/22 capsule,extended release [id number] trazodone 100 mg tablet 100 - 300 mg PO BEDTIME PRN 11/22/22 11/22/22 insomnia Previous Rx's Medication Instructions Recorded atomoxetine 60 mg capsule 60 mg PO QAM 7 days #7 caps 03/20/21 (Strattera) aripiprazole 20 mg tablet (Abilify) 20 mg PO DAILY 30 days #30 tabs 04/06/21 lamotrigine 100 mg tablet 100 mg PO DAILY #30 tabs 12/31/21 lidocaine 5 % topical patch 1 patch topical DAILY #15 ea 12/06/22 (Lidoderm) Allergies Allergy/AdvReac Type Severity Reaction Status Date / Time sertraline [From ZOLOFT] AdvReac Unknown JUST DID Verified 12/06/22 09:33 NOT FEEL QUITE RIGHT - NOT SUICIDAL Review of Systems Review of Systems: Yes all other systems are reviewed and are negative Constitutional: Constitutional: Reports no additional constitutional complaints, Denies body ache(s), Denies chills, Denies fever(s), Denies headache(s) and Denies weakness Eyes: Eyes: Reports no additional eye complaints and Denies change in vision ENT: Reports system reviewed and no additional complaints, except as documented, Denies dizziness, Denies headache(s), Denies nasal congestion, Denies nasal discharge and Denies neck pain Cardiovascular: Cardiovascular: Reports no additional cardiovascular complaints, Reports chest pain, Denies leg edema and Denies dyspnea Respiratory: Respiratory: Reports no additional respiratory complaints, Denies cough and Denies dyspnea Gastrointestinal: Gastrointestinal: Reports no additional gastrointestinal complaints, Denies abdominal pain, Denies diarrhea, Denies nausea and Denies vomiting Genitourinary: Genitourinary: Denies urinary incontinence Musculoskeletal: Musculoskeletal: Reports no additional musculoskeletal complaints, Denies back pain, Denies arthralgias, Denies joint swelling, Denies neck pain, Denies numbness and Denies tingling Integumentary/Breasts: Skin/Breast: Reports system reviewed and no additional complaints, except as docu and Denies rash Neurologic: Reports system reviewed and no additional complaints, except as documented, Denies dizziness, Denies headache(s), Denies numbness, Denies tingling and Denies weakness [facility] Past Medical History Attestation statement: The following information was validated with the patient. Source: old records reviewed and nursing notes reviewed Medical History Anxiety Bipolar disorder Depression Epilepsy Glaucoma Ocular migraine Pilar cysts PTSD (post-traumatic stress disorder) Scalp cyst Surgical History History of dermoid cyst excision Family History Family History Mother No problems noted. Father Substance use disorder Social History Social History Household Members: Spouse and Children Housing: Apartment Alcohol intake: never Patient Tobacco Use Status: Never used Tobacco e-Cigarette/Vaping Use: Never Used Advance Directives: Yes Advance Directives on File: Yes Advance Directives Date on File: 12/06/22 service: No Current occupational status: unemployed Cognitive needs: No Hearing needs: No Vision needs: No Physical Exam ED Vital Signs: Vital Signs - 24 hr 12/06/22 09:33 Temperature 98 F Pulse Rate 89 Respiratory Rate 19 Blood Pressure 137/87 Pulse Oximetry 98 Oxygen Delivery Method Room Air BMI result Body Mass Index 27.0 Const General: cooperative, comfortable and no acute distress Nutritional Appearance: average body habitus Orientation/consciousness: oriented to person, oriented to place and oriented to time Limitations: no limitations HENMT Head: Yes normal to inspection Ears: hearing grossly normal bilaterally General nose exam: Normal external nose present Face and sinus: Yes normal facial exam Eyes General: appearance normal, both eyes and all related structures Neck Neck: Yes normal visual inspection Chest Other: Tenderness to palpation overlying the left chest wall, approximately rib 6-7 with a small 2cm superficial abrasion with no surrounding erythema, edema or ecchymosis. No crepitus or deformities. No overlying ecchymosis. Chest palpation & inspection: normal inspection of the chest, normal palpation of entire chest wall and no crepitus Resp Effort & Inspection: normal respiratory effort Auscultation: clear to auscultation bilaterally, no crackles, no rales, no rhonchi and no wheezes Cardio Rate: regular rate Rhythm: regular rhythm Heart sounds: S1 normal heart sound present and S2 normal heart sound present GI Inspection: Yes normal to inspection Palpation (GI): Soft to palpation and nontender Auscultation: normal bowel sounds Skin General skin exam: no rashes or lesions noted Neuro General: oriented to person, oriented to place and oriented to time Extrem General: Yes normal to inspection Right upper extremity: normal to inspection Left upper extremity: normal to inspection Course Course Course Narrative: X-ray show no fracture. Likely rib contusion. Recommend Motrin and Tylenol at home for pain control. Patient did take Motrin prior to arrival and received Tylenol and Salonpas patch while he was here with improvement of pain. Reviewed worrisome signs and symptoms of when to return to the emergency room. Comfortable plan for discharge home Medications Administered Discontinued Medications Generic Name Dose Route Start Last Admin Trade Name Freq PRN Reason Stop Dose Admin Acetaminophen 975 mg 12/06/22 10:33 12/06/22 10:39 Acetaminophen 325 Mg Tablet PO 12/06/22 10:34 975 mg ONCE ONE Administration Lidocaine 1 patch 12/06/22 10:33 12/06/22 10:40 Lidocaine 4 % Patch Adh..Patch TRANSDERMA 12/06/22 10:34 1 patch ONCE ONE Administration Protocol Medical Decision Making Medical Decision Making MDM Narrative: 37 yo M, hx of seizures and depression, presents for evaluation of left sided rib pain x 3 days from mechanical fall. On exam TTP on chest wall with small abrasion. LS CTA. VSS. Left rib x-rays obtained Differential Diagnosis Differential Diagnoses: The differential diagnosis associated with the presentation includes Rib fracture, contusion, pneumothorax - less likely, thoracic muscle strain, abdominal injury Independent Interpretation I performed an independent interpretation of an: Plain X-Ray Interpretation: I independently reviewed the x-ray and agree with the radiologist report Radiology Impression Discussion of test interpretation with radiology: I have reviewed the radiologist's reading. Radiologist Impression: [address] [address] XRay Report Signed Patient: Richard Meza MR#: [id number] : 1985 Acct:[id number] Age/Sex: 37 / M ADM Date: 12/06/22 Loc: HO.ED Attending Dr: Ordering Physician: Ange Peters MD Date of Service: 12/06/22 Procedure(s): XR ribs LT min 3V w CXR1V Accession Number(s): [id number] cc: Ange Peters MD~ EXAMINATION: XR RIBS, LEFT CLINICAL INFORMATION: Left rib pain COMPARISON: None available. TECHNIQUE: 6 views of the chest and left RIBS FINDINGS: No focal consolidation. No pneumothorax. Trachea is midline. Cardiomediastinal silhouette is not enlarged. No large pleural effusion. Soft tissues are unremarkable. Osseous structures are intact. No acute visualized left-sided rib fractures. XR/XR ribs LT min 3V w CXR1V IMPRESSION: 1.? No acute cardiopulmonary process. 2.? No acute visualized left-sided rib fractures. ? Independent Historian Clinical information obtained from an independent historian. History obtained from or confirmed by: Spouse Critical Care Time Critical Care Time Critical Care Time: No Discharge Plan Discharge Clinical Impression: Contusion of rib on left side Patient Disposition: Home, Self-Care Instructions: Rib Contusion (ED) Additional Instructions: X-rays show no fracture Apply ice to the area Alternate motrin/tylenol for pain as needed Take deep breaths. Return for productive cough, fever >100.4, increasing shortness of breath/chest pain Prescriptions: New lidocaine [Lidoderm] 5 % adhesive patch,medicated 1 patch topical DAILY Qty: 15 0RF Rx Instructions: leave on most painful area for up to 12 hrs No Action atomoxetine [Strattera] 60 mg capsule 60 mg PO QAM 7 Days Qty: 7 0RF aripiprazole [Abilify] 20 mg tablet 20 mg PO DAILY 30 Days Qty: 30 0RF aripiprazole [Abilify] 5 mg Tablet 5 mg PO DAILY Rx Instructions: Take with 20 mg tablet for a total of 25 mg carbamazepine 200 mg Tablet 500 mg PO BEDTIME Rx Instructions: Take 200 mg tablet with 300 mg tablet for total bedtime dose of 500 mg. carbamazepine 200 mg Tablet Extended Release 12 Hr 400 mg PO DAILY lamotrigine 100 mg tablet 100 mg PO DAILY Qty: 30 0RF Rx Instructions: After taking lamotrigine 50mg daily for 14 days, start lamotrigine 100mg daily. rizatriptan 10 mg tablet 10 mg PO DAILY MDD 2 tabs PRN (Reason: ocular migraine) Rx Instructions: Take one tab at the onset of migraine. May repeat if ineffective in 2 hrs if needed. topiramate 50 mg tablet 50 mg PO BEDTIME propranolol 20 mg tablet 20 mg PO BID PRN (Reason: anxiety) riboflavin (vitamin B2) [Vitamin B-2] 100 mg tablet 100 mg PO BID atomoxetine 40 mg capsule 40 mg PO .pm trazodone 100 mg tablet 100 - 300 mg PO BEDTIME PRN (Reason: insomnia) carbamazepine 200 mg capsule, ER multiphase 12 hr 0 mg PO carbamazepine 300 mg capsule, ER multiphase 12 hr 0 mg PO Referrals: Po,Christal Swanson MD [Primary Care Provider] - 1 week Interventions: ED Discharge Assessment Last Done: 12/06/22 11:33 Discharge Date/Time: 12/06/22 11:33
[2022-12-06] MEDS: Acetaminophen 325 MG TABLET 975 MG PO (10:39)
[2022-12-06] MEDS: Lidocaine 4 % Patch ADH..PATCH 1 PATCH TRANSDERMA (10:40)
== END 2022-12-06 11:33 | disposition home or self-care (01) ==
PROVIDERS: Emergency Provider Emergency Medicine; PCP Internal Medicine
DX: R07.81 Pleurodynia (principal); S20.212A Contusion of left front wall of thorax, initial encounter; V00.1 Rolling-type pedestrian conveyance accident; Y93.9 Activity, unspecified; Y92.9 Unspecified place or not applicable
CPT/HCPCS: 71101; 99283

== ENCOUNTER → 2022-12-08 14:34 | Outpatient (BNVA) | payer MEDICARE, MEDICAID, SELFPAY | PROVIDERS: PCP Internal Medicine; Visit Provider Surgery | DX: Z48.817 Encounter for surgical aftercare following surgery on the skin and subcutaneous tissue (principal); Z87.2 Personal history of diseases of the skin and subcutaneous tissue | CPT/HCPCS: 99212 ==

== ENCOUNTER 2023-02-04 08:15 | Outpatient (RCR) | payer MEDICARE, MEDICAID, SELFPAY ==
[2023-01-18 13:13] VITALS: BP 110/72; PULSE 80; TEMP 37.3
[2023-01-18 13:16] VITALS: BMI 26.0
--- NOTE | 2023-01-18 13:52 | PC.ADMIT ---
Patient self referred to [facility] d/t increased depression with passive SI and severe anxiety. Patient stated, the past triggers things and I beat myself up a lot . Patient reports he has been to [facility] in the past and has found it helpful. Patient reportedly was at respite recently for 10 days. Patient holds a dx of Bipolar disorder current mood is depressed. Patient is alert and oriented x4. Calm and cooperative. He presents with anxious mood and affect. Report having passive SI, denied plan or intent to harm or kill himself. Medications reconciled with patient and patient's pharmacy. Patient reports he takes his medications as prescribed. Patient reports history of Tonic-Clonic Seizures. Last Seizure one year ago. He reports taking his seizure medications as prescribed. [facility] staff received information about seizure precautions for RichardFarshad
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
[2023-01-20 11:31] VITALS: BP 122/70; PULSE 88
[2023-01-20 11:45] VITALS: BP 122/70; PULSE 88
--- NOTE | 2023-01-20 14:08 | HO.PHP ---
The clients case was reviewed and opened in treatment team
--- NOTE | 2023-01-25 11:35 | HO.PHPPROGNO ---
Subjective Subjective Date of Service: 01/25/23 Reason For Visit: MDD Medical Problems Affecting Mental Status: No Interim History: Anxious mood and affect. Some improvement with depression. Increased propranolol dose has been helping to less anxiety, but the anxiety is still present. Fair sleep, approximately 4 to 5 hours at most. No SI, no safety concerns. Feels safe. Finding groups helpful. Medication Compliance: Yes Side effects from medications: No Attending Groups: Yes Review of Systems Acute medical concerns: No Medical Review of Systems: unchanged Review of Systems Review of Systems Yes all other systems are reviewed and are negative Constitutional: Reports no additional constitutional complaints Mental Status Exam Mental Status Exam Narrative: NAD Patient Appearance: Well Grooomed Patient Orientation: Person, Place, Time and Situation Level of Consciousness: Appropriate Patient Behavior: Appropriate, Cooperative and Good Eye Contact Mood Description: Depressed (less) and Anxious (slightly improved) Affect Description: Depressed and Anxious Ability to Follow Directions: Excellent Speech Pattern: Clear Memory Description: Intact Hallucinations: None Delusions: Not Present Thought Process: Intact Thought Content: positive for Intact Depressive Symptoms: Increased Anxiety, Diff. Making Decisions, Difficulty Sleeping, Loss of Int. in Activity, Isolating-Friends/Family, Feelings of Guilt, Unhappiness, Low Self Esteem and Difficulty Concentrating Judgement: Fair Diagnostics Vital Signs (24Hr): BMI result Body Mass Index 26.0 Assessment & Plan Assessment & Plan (1) Bipolar disorder, current episode depressed, severe, without psychotic features: Status: Acute Code(s): F31.4 - Bipolar disorder, current episode depressed, severe, without psychotic features Assessment and Plan: Anxious mood and affect. Some improvement with depression. No SI, no safety concerns. Increased propranolol dose has been helping to less anxiety, but the anxiety is still present. We discussed keeping current dose of propranolol for now. Discussed adding low-dose gabapentin. Reviewed current medications. Patient currently receives anticonvulsant medications for seizures. Reviewed these in detail with patient. Discussed benefits, risks, alternatives of treatment. Discussed adding a low-dose 100 mg b.i.d. trial, to help lower daytime anxiety. He was in agreement with this plan. Fair sleep, approximately 4 to 5 hours at most. Feels safe. Finding groups helpful. (2) Anxiety: Status: Acute Code(s): F41.9 - Anxiety disorder, unspecified (3) Post-traumatic stress disorder, chronic: Status: Acute Code(s): F43.12 - Post-traumatic stress disorder, chronic Assessment and Plan: Continues with symptoms, including poor sleep, hypervigilance. Plan 1. Continue with current [facility] plan of care. 2. Add gabapentin 100mg bid prn for anxiety. 3. Continue with all other medications as currently prescribed. 4. Follow-up as per protocol. Patient educated on: diagnosis, medication risk/benefits and therapeutic strategies Informed Consent: understands Reason for contiued partial hosp. stay Substantial Risk for: inability to function, rapid decompensation and med/psych decompensation Certification I certify that partial hospital treatment is medically necessary due to the symptoms and problems resulting from the patient's mental illness and the failure to treat the patient at the partial hospital level of care would likely result in the patient requiring inpatient psychiatric care which could not be prevented at a less intensive level of care. Total time managing care of this patient today _20___ minutes. Discharge Plan Discharge Attending provider: Kale Sommer Medications: New propranolol 60 mg capsule,extended release 24 hr 60 mg PO DAILY Qty: 14 0RF gabapentin 100 mg capsule 100 mg PO BID PRN (Reason: anxiety) Qty: 14 0RF Discontinued propranolol 20 mg tablet 20 mg PO BID PRN (Reason: anxiety) No Action atomoxetine [Strattera] 60 mg capsule 60 mg PO QAM 7 Days Qty: 7 0RF aripiprazole [Abilify] 20 mg tablet 20 mg PO DAILY 30 Days Qty: 30 0RF aripiprazole [Abilify] 5 mg Tablet 5 mg PO DAILY Rx Instructions: Take with 20 mg tablet for a total of 25 mg carbamazepine 200 mg Tablet 500 mg PO BEDTIME Rx Instructions: Take 200 mg tablet with 300 mg tablet for total bedtime dose of 500 mg. carbamazepine 200 mg Tablet Extended Release 12 Hr 400 mg PO DAILY lamotrigine 150 mg tablet 150 mg PO BID topiramate 100 mg tablet 100 mg PO DAILY naratriptan 2.5 mg tablet 2.5 mg PO DIRECTED PRN (Reason: Migraine Headache) riboflavin (vitamin B2) [Vitamin B-2] 100 mg tablet 200 mg PO BID atomoxetine 40 mg capsule 40 mg PO .pm trazodone 100 mg tablet 100 - 300 mg PO BEDTIME PRN (Reason: insomnia)
--- NOTE | 2023-02-09 08:06 | HO.PHP ---
A phone message was left for Aryan PRECIADO at [facility] discharge from [facility]
== END 2023-02-04 23:59 | disposition home or self-care (01) ==
LOC: HO.PHPA 08:15
PROVIDERS: Visit Provider Psychiatry & Neurology Psychiatry
DX: F31.4 Bipolar disorder, current episode depressed, severe, without psychotic features (principal); F43.12 Post-traumatic stress disorder, chronic; F41.9 Anxiety disorder, unspecified; Z79.899 Other long term (current) drug therapy
CPT/HCPCS: 90791; 90853

== ENCOUNTER 2024-06-29 18:15 | Emergency (ER) | payer MEDICARE, MEDICAID, SELFPAY ==
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
[2024-06-29 18:40] VITALS: BP 134/83; BP 142/88; PULSE 110; PULSE 134; RESP 18; TEMP 36.9; O2SAT 100; O2SAT 95; BMI 27.4
[2024-06-29 19:10] LABS: MANUAL DIFF FLAG NO
[2024-06-29 19:20] VITALS: BP 124/81; PULSE 136; RESP 20; TEMP 37.1; O2SAT 95
[2024-06-29 19:20] LABS: Basophils Absolute Auto 0.1 X10*3/uL (0.0-0.2); Basophils Percent Auto 0.8 % (0-2); Eosinophils Absolute Auto 0.1 X10*3/uL (0.0-0.4); Eosinophils Percent Auto 0.9 % (0-4); Hematocrit 45.9 % (42.0-52.0); Hemoglobin 15.4 g/dl (14.0-18.0); Imm Gran Abs Auto 0.12 X10*3/uL (0.00-0.03); Imm Gran Pct Auto 1.4 % (0.0-0.4); Lymphocytes Absolute Auto 2.6 X10*3/uL (1.2-4.9); Lymphocytes Percent Auto 29.5 % (20-40); Mean Corpuscular HGB Conc 33.6 g/dl (31.0-36.0); Mean Corpuscular Hemoglobin 29.2 pg (27.0-33.0); Mean Corpuscular Volume 87.1 fL (80.0-98.0); Mean Platelet Volume 8.9 fL (9.4-12.4); Monocytes Absolute Auto 0.5 X10*3/uL (0.1-1.2); Monocytes Percent Auto 6.1 % (2-11); Neutrophils Absolute Auto 5.4 x10*3/uL (2.0-8.3); Neutrophils Percent Auto 61.3 % (45-73); Platelet Count 217 X10*3/uL (160-400); Red Blood Count 5.27 X10*6/uL (4.60-5.80); Red Cell Distribution Width 13.6 % (11.0-16.0); White Blood Count 8.8 X10*3/uL (4.8-10.8)
[2024-06-29 19:27] LABS: COVID-19 Test Negative (Negative); IDNOW Serial# 08D9AD1C
[2024-06-29 19:29] LABS: Alanine Aminotransferase 139 U/L (0-40); Albumin Level 4.4 g/dL (3.5-5.0); Alkaline Phosphatase 98 U/L (39-117); Anion Gap 15 (12-20); Aspartate Amino Transferase 93 U/L (5-37); Bilirubin Total 0.3 mg/dL (0.0-1.0); Blood Urea Nitrogen 14 mg/dL (9-16); Calcium 9.3 mg/dL (8.4-10.2); Carbon Dioxide 27 mmol/L (22-29); Chloride 105 mmol/L (96-108); Creatinine Clr Calc Pharmacy 81.6; Estimated Glomerular Filt Rate > 60; Ethanol 221 mg/dL; Glucose Random 106 mg/dL (60-115); Sodium 143 mmol/L (135-145); Total Protein 7.4 g/dL (6.5-8.0)
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
[2024-06-29] MEDS: LORazepam 1 MG TABLET 2 MG PO (19:48)
[2024-06-29] MEDS: carBAMazepine 200 MG TABLET 500 MG PO (21:15)
[2024-06-29] MEDS: Topiramate 25 MG TABLET 100 MG PO (21:15)
[2024-06-29] MEDS: lamoTRIgine 25 MG TABLET 150 MG PO (21:15)
[2024-06-29] MEDS: Gabapentin 100 MG CAPSULE PO (21:32)
[2024-06-29 23:11] LABS: Amphetamine Screen Urine Not Detected (Not Detect); Barbiturates, Urine Not Detected (Not Detect); Benzodiazepines Screen Urine Not Detected (Not Detect); Buprenorphine Scr Not Detected (Not Detect); Cannabinoid Screen Urine POSITIVE (Not Detect); Cocaine Screen Urine Not Detected (Not Detect); Fentanyl, urine Not Detected (Not Detect); Methadone Screen, Urine Not Detected (Not Detect); Opiate Screen Urine Not Detected (Not Detect); Oxycodone Screen Urine Not Detected (Not Detect); Phencyclidine Screen Urine Not Detected (Not Detect)
[2024-06-30 00:27] VITALS: BP 128/92; PULSE 111; RESP 20; TEMP 36.8; O2SAT 95
[2024-06-30 03:57] VITALS: BP 128/91; PULSE 113; RESP 20; O2SAT 97
[2024-06-30] MEDS: Topiramate 25 MG TABLET 100 MG PO ×2 (08:26→20:07)
[2024-06-30] MEDS: Gabapentin 300 MG CAPSULE PO (08:26)
[2024-06-30] MEDS: lamoTRIgine 25 MG TABLET 150 MG PO ×2 (08:26→20:07)
[2024-06-30] MEDS: ARIPiprazole 20 MG TABLET PO (08:26)
[2024-06-30] MEDS: ARIPiprazole 5 MG TABLET PO (08:26)
[2024-06-30] MEDS: carBAMazepine ER 200 MG TAB.ER.12H 400 MG PO (09:15)
[2024-06-30] MEDS: Propranolol HCL LA 60 MG CAP.SA.24H PO (11:03)
[2024-06-30 11:07] VITALS: BP 135/91; PULSE 104; RESP 16; TEMP 36.6; O2SAT 97
--- NOTE | 2024-06-30 11:10 | MHC.EDTECH ---
pt was given items to take a shower, RN aware
--- NOTE | 2024-06-30 12:01 | PC.NURSE ---
Addendum entered by Dede Clarke 06/30/24 12:01: previously ambulated to the bathroom to take a shower Original Note: patient medicated per the MAR, resting quietly in room w/ even and unlabored. patient states he does not go through withdrawal symptoms from etoh. ciwa of 0.
[2024-06-30 17:12] VITALS: BP 146/99; PULSE 92; RESP 18; TEMP 36.5; O2SAT 98
[2024-06-30] MEDS: carBAMazepine 200 MG TABLET 500 MG PO (20:07)
[2024-06-30] MEDS: Gabapentin 300 MG CAPSULE 600 MG PO (20:07)
[2024-06-30] MEDS: traZODone HCL 100 MG TABLET PO (20:08)
[2024-07-01 08:01] VITALS: BP 126/87; PULSE 95; RESP 16; TEMP 36.8; O2SAT 98
[2024-07-01] MEDS: ARIPiprazole 20 MG TABLET PO (08:21)
[2024-07-01] MEDS: Gabapentin 300 MG CAPSULE PO (08:21)
[2024-07-01] MEDS: lamoTRIgine 25 MG TABLET 150 MG PO (08:21)
[2024-07-01] MEDS: Topiramate 25 MG TABLET 100 MG PO (08:21)
[2024-07-01] MEDS: ARIPiprazole 5 MG TABLET PO (08:21)
[2024-07-01] MEDS: carBAMazepine ER 200 MG TAB.ER.12H 400 MG PO (09:56)
[2024-07-01] MEDS: Propranolol HCL LA 60 MG CAP.SA.24H PO (09:56)
--- NOTE | 2024-07-01 13:02 | PHA.MEDREC ---
Addendum entered by Salvador Larsen RPh 07/01/24 13:12: Reviewed by [facility] Original Note: Pharmacy Consult ? Medication Reconciliation Pharmacy has completed the medication reconciliation. reviewed med rec done by nursing. Patient reports still using naratriptan prn for migraines despite no claims, will keep on med rec.
--- NOTE | 2024-07-01 15:26 | MHC.CARE ---
Patient reassessed by the CARE Team today, disposition changed from inpatient psychiatric treatment to ACCS (respite). He has been accepted to [facility] for admission at 5:00 pm today. ED provider, Dr. Peters updated with plan of care.
[2024-07-01 16:06] VITALS: BP 126/87; PULSE 95; RESP 16; TEMP 36.8; O2SAT 98
== END 2024-07-01 16:15 | disposition other institution (70) ==
PROVIDERS: Emergency Provider Emergency Medicine; PCP Internal Medicine
DX: R45.851 Suicidal ideations (principal); F32.A Depression, unspecified; F41.9 Anxiety disorder, unspecified; F43.12 Post-traumatic stress disorder, chronic; Z79.899 Other long term (current) drug therapy; Z11.52 Encounter for screening for COVID-19
CPT/HCPCS: 80053; 80307; 85025; 87635; 99285; S9485

== ENCOUNTER → 2025-03-08 08:30 | Outpatient (BNV) | payer MEDICARE, MEDICAID, SELFPAY | PROVIDERS: Visit Provider Psychiatry & Neurology Psychiatry | DX: F43.10 Post-traumatic stress disorder, unspecified (principal); Z86.59 Personal history of other mental and behavioral disorders; F10.90 Alcohol use, unspecified, uncomplicated; F39 Unspecified mood [affective] disorder | CPT/HCPCS: 90792 ==

== ENCOUNTER → 2025-03-13 08:00 | Outpatient (REF) | payer MEDICARE, SELFPAY ==
--- NOTE | 2025-03-13 08:08 | ECG_ITS ---
Test Reason : CHECK QT Blood Pressure : */* mmHG Vent. Rate : 88 BPM Atrial Rate : 88 BPM P-R Int : 150 ms QRS Dur : 76 ms QT Int : 346 ms P-R-T Axes : 41 5 28 degrees QTcB Int : 418 ms Normal sinus rhythm Minimal voltage criteria for LVH, may be normal variant ( R in aVL ) Borderline ECG When compared with ECG of 06-Sep-2018 07:32, No significant change was found Referred By: Mitra Hill Electronically Signed By: GAIL GREENE
[2025-03-13 08:19] LABS: MANUAL DIFF FLAG NO
[2025-03-13 09:07] LABS: Basophils Percent Auto 0.5 % (0-2); Hematocrit 40.9 % (42.0-52.0); Hemoglobin 13.5 g/dl (14.0-18.0); Imm Gran Abs Auto 0.04 X10*3/uL (0.00-0.03); Imm Gran Pct Auto 0.5 % (0.0-0.4); Lymphocytes Absolute Auto 2.2 X10*3/uL (1.2-4.9); Lymphocytes Percent Auto 27.2 % (20-40); Mean Corpuscular Volume 84.7 fL (80.0-98.0); Mean Platelet Volume 9.3 fL (9.4-12.4); Monocytes Absolute Auto 0.5 X10*3/uL (0.1-1.2); Monocytes Percent Auto 6.8 % (2-11); Neutrophils Absolute Auto 5.1 x10*3/uL (2.0-8.3); Platelet Count 198 X10*3/uL (160-400); Red Blood Count 4.83 X10*6/uL (4.60-5.80); Red Cell Distribution Width 12.8 % (11.0-16.0); White Blood Count 7.9 X10*3/uL (4.8-10.8)
[2025-03-13 09:17] LABS: Estimated Average Glucose 94 mg/dL; Hemoglobin A1c % 4.9 % (<6.0); Total Hemoglobin (HGBA1C) 3623.0822 umol/L
[2025-03-13 09:44] LABS: Erythrocyte Sedimentation Rate 4 MM/HR (0-15)
[2025-03-13 10:02] LABS: Alanine Aminotransferase 31 U/L (0-40); Albumin Level 4.5 g/dL (3.5-5.0); Alkaline Phosphatase 78 U/L (39-117); Anion Gap 10 (12-20); Aspartate Amino Transferase 22 U/L (5-37); Bilirubin Total 0.4 mg/dL (0.0-1.0); Blood Urea Nitrogen 15 mg/dL (9-16); C Reactive Protein 0.58 mg/dL (< or = 0.50); Calcium 8.8 mg/dL (8.4-10.2); Carbon Dioxide 25 mmol/L (22-29); Chloride 108 mmol/L (96-108); Cholesterol 141 mg/dL (<200); Estimated Glomerular Filt Rate > 60; Gamma Glutamyl Transpeptidase 89 U/L (11-51); Glucose Fasting 98 mg/dL (60-99); HDL Cholesterol 56 mg/dL (>40); LDL Cholesterol Calculated 74 mg/dL (<100); Potassium 3.9 mmol/L (3.3-5.1); Sodium 139 mmol/L (135-145); Total Protein 6.8 g/dL (6.5-8.0); Triglycerides 58 mg/dL (<150)
[2025-03-13 10:09] LABS: HIV AB/AG Nonreactive (Nonreactive); HIV Num 1 0.07 S/CO (0.00-0.99); Syphilis Screen Nonreactive (Nonreactive); ~HepC Num1 0.07 S/CO (0.00-0.79); ~Hepatitis C Antibody Nonreactive (Nonreactive)
[2025-03-13 10:21] LABS: Free T4 (Free Thyroxine) 0.96 ng/dL (0.71-1.85)
[2025-03-13 10:24] LABS: Folate 8.1 ng/mL (> or = 4.0); Vitamin B12 702 pg/mL (200-900)
[2025-03-13 12:15] LABS: CT PCR Urine NOT DETECTED (Not Detect.); NG PCR Urine NOT DETECTED (Not Detect.)
[2025-03-15 03:49] LABS: Homocysteine 9.5 umol/L (< or = 13.5)
[2025-03-17 12:33] LABS: Vitamin B1 9 nmol/L (8-30)
== END ==
LOC: HO.CARD 08:00
PROVIDERS: PCP Internal Medicine; Visit Provider Psychiatry & Neurology Psychiatry
DX: F39 Unspecified mood [affective] disorder (principal); F44.81 Dissociative identity disorder
CPT/HCPCS: 36415; 80053; 80061; 82306; 82550; 82607; 82746; 82977; 83036; 83090; 83735; 84425; 84439; 85025; 85652; 86140; 86780; 86803; 87389; 87491; 87591; 93005

== ENCOUNTER → 2025-03-13 08:08 | Outpatient (BNV) | payer MEDICARE, MEDICAID, SELFPAY | PROVIDERS: PCP Internal Medicine; Visit Provider Internal Medicine | DX: Z13.6 Encounter for screening for cardiovascular disorders (principal) | CPT/HCPCS: 93010 ==

== ENCOUNTER 2025-03-27 09:15 | Outpatient (RCR) | payer MEDICARE, MEDICAID, SELFPAY ==
--- NOTE | 2025-03-07 14:47 | HO.IOP ---
This case was opened and reviewed on treatment teams.
[2025-03-07 18:06] VITALS: BP 116/78; PULSE 96; RESP 18; TEMP 36.7
[2025-03-07 18:07] VITALS: BMI 29.4
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
--- NOTE | 2025-03-12 08:26 | HO.PHPPROGNO ---
Subjective Subjective Date of Service: 03/12/25 Reason For Visit: bipolar,DID Interim History: ?Had a crappy night and morning... My is upset with me . He says he was trying to be helpful, his 15-year-old was playing video games all night long until morning, was getting overwhelmed he was suggesting he get off and go rest. ?She accuses me of being hard on him and says from any little issue, an argument can ensue. He reports history of drinking and infidelity in the past (2019), but she still brings it up and it gets thrown in my face . She went on to lecture him for 1.5 hours this morning. She has said she wanted to leave but then takes it back and accuses me of trying to get out of our marriage . He said he was able to remain calm despite her yelling, although he says he is some times yells back time to time I get frustrated. His has been giving him rides due to ocular aura migraines; his neurologist has forbidden him from driving for a period of 6 months, and will be reassessed at that time. Depression at a 6 or 7 out of 10 in severity. Denies SI, HI, AH, VH. Medication Compliance: Yes Side effects from medications: No Attending Groups: Yes Review of Systems Acute medical concerns: No Mental Status Exam Mental Status Exam Narrative: Alert, oriented, in no acute distress. Calm, cooperative, engaged. No psychomotor agitation or neurovegetative retardation. Eye contact maintained. Mood anxious, affect variable, mood congruent. Speech normal. Thought process linear, coherent. Thought content related to stressors, denies any hopelessness or SI. Denies any aggressive ideation or HI. No paranoia or delusional content elicited. No evidence of psychosis. Insight and judgment - fair but adequate. Diagnostics Vital Signs (24Hr): BMI result Body Mass Index 29.4 Assessment & Plan Assessment & Plan (1) Complex posttraumatic stress disorder: Status: Acute Code(s): F43.10 - Post-traumatic stress disorder, unspecified (2) History of dissociative disorder: Status: Acute Code(s): Z86.59 - Personal history of other mental and behavioral disorders (3) Alcohol use disorder: Status: Acute Code(s): F10.90 - Alcohol use, unspecified, uncomplicated (4) Mood disorder: Status: Acute Code(s): F39 - Unspecified mood [affective] disorder Plan Continue PHP increase olanzapine to 5 mg qhs decrease trazodone to 100-150 mg qhs prn sleep increase propranolol to 10-20 mg qam, may try to increase to BID dosing will consider naltrexone for etoh addiction continue regular medications for now Routine lab work as indicated EKG, routine for baseline QTc for medication considerations as indicated UDS as indicated VS on admission: afebrile, BP 116/78;?96 bpm Continue to monitor Patient educated on: diagnosis, medication risk/benefits and substance abuse Informed Consent: understands Reason for contiued partial hosp. stay Substantial Risk for: inability to function and med/psych decompensation Certification I certify that partial hospital treatment is medically necessary due to the symptoms and problems resulting from the patient's mental illness and the failure to treat the patient at the partial hospital level of care would likely result in the patient requiring inpatient psychiatric care which could not be prevented at a less intensive level of care. Total time managing care of this patient today _30___ minutes. Discharge Plan Discharge Attending provider: Mitra Hill Medications: New propranolol 10 mg tablet 10 - 20 mg PO BID PRN (Reason: anxiety, akithisia) Qty: 30 0RF Continued aripiprazole [Abilify] 20 mg tablet 20 mg PO DAILY 30 Days Qty: 30 0RF aripiprazole [Abilify] 5 mg Tablet 5 mg PO DAILY Rx Instructions: Take with 20 mg tablet for a total of 25 mg carbamazepine 200 mg Tablet Extended Release 12 Hr 400 mg PO DAILY olanzapine 2.5 mg tablet 2.5 mg PO BEDTIME methylphenidate HCl 10 mg tablet 15 mg PO BID 14 Days Qty: 42 0RF lamotrigine 150 mg tablet 150 mg PO BID topiramate 50 mg tablet 100 mg PO BID gabapentin 300 mg Capsule 600 mg PO BEDTIME gabapentin 300 mg Capsule 300 mg PO BID@0900,1700 carbamazepine 200 mg capsule, ER multiphase 12 hr 200 mg PO BEDTIME carbamazepine 300 mg capsule, ER multiphase 12 hr 300 mg PO BEDTIME Rx Instructions: TOTAL BEDTIME DOSE = 500 MG trazodone 100 mg tablet 100 - 300 mg PO BEDTIME PRN (Reason: insomnia) Print Language: Malay
--- NOTE | 2025-03-21 12:52 | HO.PHPPROGNO ---
Subjective Subjective Date of Service: 03/21/25 Reason For Visit: bipolar,DID Diagnostics Vital Signs (24Hr): BMI result Body Mass Index 29.4 Assessment & Plan Certification I certify that partial hospital treatment is medically necessary due to the symptoms and problems resulting from the patient's mental illness and the failure to treat the patient at the partial hospital level of care would likely result in the patient requiring inpatient psychiatric care which could not be prevented at a less intensive level of care. Total time managing care of this patient today ____ minutes. Discharge Plan Discharge Attending provider: Mitra Hill Medications: New propranolol 10 mg tablet 10 - 20 mg PO BID PRN (Reason: anxiety, akithisia) Qty: 30 0RF lamotrigine 200 mg tablet 200 mg PO BID Qty: 60 0RF thiamine HCl (vitamin B1) 100 mg tablet 100 mg PO DAILY Qty: 30 1RF Continued aripiprazole [Abilify] 20 mg tablet 20 mg PO DAILY 30 Days Qty: 30 0RF aripiprazole [Abilify] 5 mg Tablet 5 mg PO DAILY Rx Instructions: Take with 20 mg tablet for a total of 25 mg carbamazepine 200 mg Tablet Extended Release 12 Hr 400 mg PO DAILY olanzapine 2.5 mg tablet 2.5 mg PO BEDTIME methylphenidate HCl 10 mg tablet 15 mg PO BID 14 Days Qty: 42 0RF lamotrigine 150 mg tablet 150 mg PO BID topiramate 50 mg tablet 100 mg PO BID gabapentin 300 mg Capsule 600 mg PO BEDTIME gabapentin 300 mg Capsule 300 mg PO BID@0900,1700 carbamazepine 200 mg capsule, ER multiphase 12 hr 200 mg PO BEDTIME carbamazepine 300 mg capsule, ER multiphase 12 hr 300 mg PO BEDTIME Rx Instructions: TOTAL BEDTIME DOSE = 500 MG trazodone 100 mg tablet 100 - 300 mg PO BEDTIME PRN (Reason: insomnia) Patient Education: Bipolar Disorder (DC), Anxiety (ED) Print Language: Upper Sorbian
--- NOTE | 2025-03-27 11:56 | PC.NURSE ---
Patient has a history of seizure disorder. He stated he had a seizure yesterday, lost consciousness and fell face first on the stairs at home. He has several lacerations on his left cheek, Left side of neck, on his forehead and bridge of his nose. Appears to have edema under bilateral eyes. Swelling noted on forehead and nose. He stated he has not had a seizure in a year. He is on medications for seizures and stated he has been taking this medication as prescribed. He stated he is under a lot of stress and having arguments with his . He did not f/u with medical care yesterday as he reports she has had seizures in the past. He c/o headache. he is alert and oriented x4. I recommended he go to the ER to f/u and Richard agreed. I walked Richard to [facility] ER without incident for evaluation.
--- NOTE | 2025-03-28 13:54 | HO.PHP ---
This clinician called the client and was informed that he was not available. Clinician will call him back on 03/29/25 if he does not attend to the Program.
== END 2025-03-27 23:59 | disposition home or self-care (01) ==
LOC: HO.PHPA 09:15
PROVIDERS: Visit Provider Psychiatry & Neurology Psychiatry
DX: F43.10 Post-traumatic stress disorder, unspecified (principal); F39 Unspecified mood [affective] disorder; F10.90 Alcohol use, unspecified, uncomplicated; Z86.59 Personal history of other mental and behavioral disorders; Z79.899 Other long term (current) drug therapy
CPT/HCPCS: 90791; 90853

== ENCOUNTER 2025-03-27 09:36 | Emergency (ER) | payer MEDICARE, SELFPAY ==
--- NOTE | ~2025-03-27 | CT_ITS ---
EXAMINATION: CT CERVICAL SPINE WITHOUT CONTRAST CLINICAL INFORMATION: Fall, neck pain. COMPARISON: None available. TECHNIQUE: Spiral CT imaging of the cervical spine performed in axial plane without contrast. Multiplanar reformatted images were constructed from the axial data set. This CT examination was performed using dose optimization techniques as appropriate, variously including the following: *Automated exposure control *Adjustment of mA and/or kV according to patient size (this includes techniques or standardized protocols for targeted exams where dose is matched to indication/reason for exam; i.e. extremities or head) *Use of iterative reconstruction technique FINDINGS: CORONAL ALIGNMENT: -Normal. SAGITTAL ALIGNMENT: -Minimal straightening of the normal lordosis. -No evidence of subluxation. C1-C2 AND CRANIOCERVICAL JUNCTION: -Intact and normally aligned. VERTEBRAL BODIES AND FACETS: -No fracture, compression deformity, or suspicious bone lesion. -No evidence of traumatic subluxation. -Normal facet alignment bilaterally. No significant facet arthrosis. DISCS: -Preserved at all levels. No significant disc degeneration. CENTRAL CANAL: -No evidence of high-grade central canal narrowing or large disc herniation allowing for modality limitations. PREVERTEBRAL AND PARAVERTEBRAL SOFT TISSUES: -No pre or paravertebral soft tissue swelling or abnormal fluid collection. -Normal thyroid. -No mass or lymphadenopathy within the neck. LUNG APICES: -Clear bilaterally. Mosaic attenuation present, likely hypoventilatory state. CT/CT cervical spine wo IV con IMPRESSION: 1. No CT evidence of acute cervical spine fracture or injury. Electronically signed by: Dmitri Shields MD 03/27/2025 11:05 AM EDT
--- NOTE | ~2025-03-27 | CT_ITS ---
EXAMINATION: CT FACIAL BONES WITHOUT CONTRAST CLINICAL INFORMATION: Seizure. Status post fall. COMPARISON: None available. TECHNIQUE: Contiguous axial images through the maxillofacial bones using 3 mm collimation with bone and soft tissue algorithm. Sagittal and coronal reformatted images acquired. DLP: [address] examination was performed using dose optimization techniques as appropriate, variously including the following: *Automated exposure control *Adjustment of mA and/or kV according to patient size (this includes techniques or standardized protocols for targeted exams where dose is matched to indication/reason for exam; i.e. extremities or head) *Use of iterative reconstruction technique FINDINGS: Cortical irregularity and disruption seen involving the nasal bones.. This is septum and vomer are intact. The orbital rims, orbital fissures and orbital apices are intact. No hematoma or fluid collections in the intraconal or extraconal compartments of the orbits. The eyeballs are intact. Zygomatic arcs are intact. Maxilla/pterygoid plates are intact. Mandible is intact. Temporomandibular joints are intact. No air-fluid levels in the paranasal sinuses. Tympanic cavities and mastoid air cells are aerated. Poor dilatation. CT/CT facial bones wo IV con IMPRESSION: Acute comminuted nondisplaced nasal bone fractures. No gross soft tissue hematoma. Electronically signed by: Tre Santo MD 03/27/2025 11:10 AM EDT
--- NOTE | ~2025-03-27 | CT_ITS ---
EXAMINATION: CT HEAD WITHOUT CONTRAST CLINICAL INFORMATION: Seizure, fall with head strike COMPARISON: None available. TECHNIQUE: Contiguous axial imaging was performed from the skull base to vertex without intravenous administration of contrast. This CT examination was performed using dose optimization techniques as appropriate, variously including the following: *Automated exposure control *Adjustment of mA and/or kV according to patient size (this includes techniques or standardized protocols for targeted exams where dose is matched to indication/reason for exam; i.e. extremities or head) *Use of iterative reconstruction technique DLP: 670 mGy-cm FINDINGS: No acute intracranial hemorrhage, mass effect, midline shift, hydrocephalus or herniation. Bañuelos-white matter differentiation is normal. No acute cortical disruption in the bony calvarium or the skull base. There are multiple, different sizes, less than 2 cm partially calcified nodular lesions throughout the soft tissue scalp. There is a 0.5 cm exostosis in the right frontal bone. Posterior cranial fossa contents demonstrated normal position of the cerebellar tonsils. Sellar/suprasellar region demonstrated no gross masses. No air-fluid levels in the included paranasal sinuses. Tympanic cavities and mastoid air cells are aerated. CT/CT head/brain wo IV con IMPRESSION: No acute fracture, bony calvarium. No acute intracranial hemorrhage. Consider trichilemmal cysts , soft tissue scalp. Electronically signed by: Tre Santo MD 03/27/2025 11:05 AM EDT
[2025-03-27 10:01] VITALS: BP 113/69; PULSE 101; RESP 16; TEMP 37; O2SAT 96; BMI 30.1
[2025-03-27 10:26] LABS: MANUAL DIFF FLAG NO
[2025-03-27 10:28] LABS: Hematocrit 39.2 % (42.0-52.0); Hemoglobin 13.5 g/dl (14.0-18.0); Imm Gran Abs Auto 0.09 X10*3/uL (0.00-0.03); Imm Gran Pct Auto 1.0 % (0.0-0.4); Lymphocytes Absolute Auto 2.3 X10*3/uL (1.2-4.9); Mean Corpuscular HGB Conc 34.4 g/dl (31.0-36.0); Mean Corpuscular Hemoglobin 28.5 pg (27.0-33.0); Mean Corpuscular Volume 82.9 fL (80.0-98.0); NRBC Abs Auto 0.000 X10*3/uL (0.0-0.012); NRBC Pct Auto 0.0 /100WBC (0.0-0.2); Platelet Count 210 X10*3/uL (160-400); Red Blood Count 4.73 X10*6/uL (4.60-5.80); White Blood Count 9.0 X10*3/uL (4.8-10.8)
[2025-03-27 10:54] LABS: Anion Gap 12 (12-20); Blood Urea Nitrogen 13 mg/dL (9-16); Calcium 9.1 mg/dL (8.4-10.2); Carbon Dioxide 27 mmol/L (22-29); Chloride 106 mmol/L (96-108); Creatinine Clr Calc Pharmacy 128.9; Estimated Glomerular Filt Rate > 60; Potassium 4.0 mmol/L (3.3-5.1); Sodium 141 mmol/L (135-145)
[2025-03-27 10:56] LABS: Carbamazepine Tegretol 9.1 mcg/mL (5.0-12.0)
--- NOTE | 2025-03-27 11:32 | PC.NURSE ---
Pt to ED 12 from triage, ambulates with steady gait. A/O x 4, reports headache 02/26. Reports having sz yesterday and falling down stairs with head strike and + LOC. Bruising and abrasions noted to face/nose. Bruising noted to left side of chest and right flank. Pt placed on bedside monitor, HR in 80's sinus rhythm. #20 placed in right AC.
--- NOTE | 2025-03-27 11:41 | ED.SEIZURE ---
HPI - Seizure General Chief Complaint: Seizure Stated Complaint: Seizure yesterday - facial lacerations Time Seen by Provider: 03/27/25 10:28 History of Present Illness ED Provider: Kevin Esparza MD HPI Narrative: [age] male seizure d/o since age of 4. On Carbemazepine: 400in am , 500 QHS no missed doses. 1 etoh drink few days ago, YEsterda had aura visual after a walk - fell into a stair. facial abrasions. Related Data Home Medications ?Medication ?Instructions ?Recorded ?Confirmed aripiprazole 5 mg tablet (Abilify) 5 mg PO DAILY 12/18/21 03/07/25 carbamazepine 200 mg 400 mg PO DAILY 12/18/21 03/07/25 tablet,extended release,12 hr trazodone 100 mg tablet 100 - 300 mg PO BEDTIME PRN 11/22/22 03/07/25 insomnia lamotrigine 150 mg tablet 150 mg PO BID 01/18/23 03/07/25 topiramate 50 mg tablet 100 mg PO BID 06/29/24 03/07/25 carbamazepine 200 mg 200 mg PO BEDTIME 06/30/24 03/07/25 capsule,extended release [id number] carbamazepine 300 mg 300 mg PO BEDTIME 06/30/24 03/07/25 capsule,extended release [id number] gabapentin 300 mg capsule 300 mg PO BID@0900,1700 06/30/24 03/07/25 gabapentin 300 mg capsule 600 mg PO BEDTIME 06/30/24 03/07/25 olanzapine 2.5 mg tablet 2.5 mg PO BEDTIME 03/07/25 03/07/25 Previous Rx's ?Medication ?Instructions ?Recorded aripiprazole 20 mg tablet (Abilify) 20 mg PO DAILY 30 days #30 tabs 04/06/21 propranolol 10 mg tablet 10 - 20 mg (1 - 2 x 10 mg) PO BID 03/08/25 PRN anxiety, akithisia #30 tabs lamotrigine 200 mg tablet 200 mg PO BID #60 tabs 03/21/25 methylphenidate HCl 10 mg tablet 15 mg (1.5 x 10 mg) PO BID 14 days 03/21/25 #42 tabs thiamine HCl (vitamin B1) 100 mg 100 mg PO DAILY #30 tabs 07/03/25 tablet Allergies Allergy/AdvReac Type Severity Reaction Status Date / Time sertraline (From ZOLOFT) AdvReac Unknown JUST DID Verified 03/27/25 10:06 NOT FEEL QUITE RIGHT - NOT SUICIDAL PMFSH Past Medical History Medical History Scalp cyst Bipolar disorder Ocular migraine Epilepsy Glaucoma Pilar cysts PTSD (post-traumatic stress disorder) Depression Anxiety Surgical History History of dermoid cyst excision Family History Family History Mother No problems noted. Father Substance use disorder Social History Social History Household Members: Spouse and Children Housing: Apartment Alcohol intake: never Patient Tobacco Use Status: Never used Tobacco Smoked in Last 30 Days: No e-Cigarette/Vaping Use: Never Used Use of substances other than those prescribed or required for medical reasons: No Advance Directives: Yes Advance Directives on File: Yes Advance Directives Date on File: 12/06/22 service: No Current occupational status: unemployed Cognitive needs: No Hearing needs: No Vision needs: No Physical Exam Vital Signs: Vital Signs: Last Vital Signs Temp 98.2 F 03/27/25 12:04 Pulse 85 03/27/25 12:04 Resp 16 03/27/25 12:04 BP 132/74 03/27/25 12:04 Pulse Ox 95 03/27/25 12:04 O2 Del Method Room Air 03/27/25 12:04 BMI result Body Mass Index 30.1 GENERAL: Well appearing. No apparent distress. Alert. HEAD/NECK: Normal to inspection. Neck supple. No cervical lymphadenopathy. Cyst in the central superior forehead says he gets these frequently EYES: Normal to inspection. Sclera non-icteric. ENMT: Abrasion and/or superficial healing laceration superior bridge of the nose. No epistaxis. No septal hematoma. No gross deformity. Various small very superficial and healing scratches/abrasions from the fall yesterday on the forehead and left side of the neck RESPIRATORY: Respiratory effort normal. Lungs clear to auscultation bilaterally. CARDIOVASCULAR: Regular rate. Normal rhythm. No murmur. No rubs. GI: Soft, non-tender, non-distended. No rebound or guarding. No masses palpable. No hepatosplenomegaly. SKIN: No jaundice. NEUROLOGICAL: Alert. PSYCHIATRIC: Alert. Appearance appropriate for situation. Attitude cooperative. OTHER: Comprehensive Neuro exam: Face symmetric, tongue midline, strong symmetric eye closure, pupils symmetric and reactive to light, intact sensation to the face throughout, intact strong face deviation and shoulder shrug. Sensation intact to light touch throughout 5 out of 5 strength in bilateral upper extremities, 5 and 5 strength in lower extremities Medications Administered Discontinued Medications Generic Name Dose Route Start Last Admin Trade Name Freq PRN Reason Stop Dose Admin Ibuprofen 600 mg 03/27/25 11:51 03/27/25 11:59 Ibuprofen 600 Mg Tablet PO 03/27/25 11:52 600 mg ONCE ONE Administration Medical Decision Making Medical Decision Making MDM Narrative: Medical Decision Makin-year-old male comes from partial psychiatric hospitalization with a breakthrough seizure. Longstanding seizure disorder stable on carbamazepine dosing. Adherent with medications. Drank alcohol recently could be exacerbating factor Fell face 1st no significant or actionable injuries there is a nondisplaced nasal fracture. He has resolved epistaxis and no evidence of current epistaxis or septal hematoma. No intracranial injury. Patient awake alert oriented monitored several hours in the ED without recurrent seizure, aura or other complications. Tegretol level sent for outpatient providers to follow up Preliminary Favored Differential Diagnosis: Breakthrough seizure, electrolyte derangement, dehydration, medication nonadherence or low-level among additional considered etiologies Testing Interpreted Independently: Not Applicable Radiology or Lab testing Results Reviewed: CBC chemistry non actionable Consults: Not Applicable Independent Historians/External Chart Reviews: Not Applicable Social Determinants of Health Impacting MDM/Planning: Not Applicable Lab Data 03/27/25 10:16 03/27/25 10:16 Labs: Lab Results 03/27/25 03/27/25 Range/Units 10:16 10:34 WBC 9.0 (4.8-10.8) X10*3/uL RBC 4.73 (4.60-5.80) X10*6/uL Hgb 13.5 L (14.0-18.0) g/dl Hct 39.2 L (42.0-52.0) % MCV 82.9 (80.0-98.0) fL MCH 28.5 (27.0-33.0) pg MCHC 34.4 (31.0-36.0) g/dl RDW 13.0 (11.0-16.0) % Plt Count 210 (160-400) X10*3/uL MPV 8.9 L (9.4-12.4) fL Immature Gran % (Auto) 1.0 H (0.0-0.4) % Neut % (Auto) 66.3 (45-73) % Lymph % (Auto) 25.5 (20-40) % [place] % (Auto) 6.8 (2-11) % Eos % (Auto) 0.0 (0-4) % Baso % (Auto) 0.4 (0-2) % Lymph # (Auto) 2.3 (1.2-4.9) X10*3/uL [place] # (Auto) 0.6 (0.1-1.2) X10*3/uL Eos # (Auto) 0.0 (0.0-0.4) X10*3/uL Baso # (Auto) 0.0 (0.0-0.2) X10*3/uL Abs Immat Gran (auto) 0.09 H (0.00-0.03) X10*3/uL Absolute Neuts (auto) 6.0 (2.0-8.3) x10*3/uL Absolute Nucleated RBC 0.000 (0.0-0.012) X10*3/uL Nucleated RBC % (auto) 0.0 (0.0-0.2) /100WBC Sodium 141 (135-145) mmol/L Potassium 4.0 (3.3-5.1) mmol/L Chloride 106 (96-108) mmol/L Carbon Dioxide 27 (22-29) mmol/L Anion Gap 12 (12-20) BUN 13 (9-16) mg/dL Creatinine 0.89 (0.5-1.4) mg/dL Estim Creat Clear Calc 128.9 Estimated GFR > 60 Random Glucose 101 (60-115) mg/dL Calcium 9.1 (8.4-10.2) mg/dL Carbamazepine 9.1 (5.0-12.0) mcg/mL Discharge Plan Discharge Clinical Impression: Breakthrough seizure Patient Disposition: Home, Self-Care Instructions: Epilepsy (ED) Additional Instructions: DISCHARGE DIAGNOSES: Breakthrough seizure HISTORY OF PRESENTATION: ?Isolated seizure with head trauma/facial trauma EMERGENCY DEPARTMENT COURSE,TESTS, TREATMENTS: While in the ED today you had CT scan your head face and neck. Only acute findings were broken nasal bone which is not displaced no does not require any significant treatment. You had your blood counts and electrolytes tested which were all normal. A carbamazepine level has been sent but has not yet DISCHARGE MEDICATIONS: ?[We have made no changes to your regular medication regimen] FOLLOW-UP: ?Call your primary or general physician soon as possible to discuss your symptoms, your ED visit and to discuss follow up plans Call your neurologist this afternoon to discuss follow up INSTRUCTIONS ?& RETURN PRECAUTIONS: If any symptoms change first call your primary physician, if it is after-hours your primary doctors office should have a provider video control operator you can speak with. If the symptoms are severe or very concerning to you then call 911 or return to the ED. Return for 2 more seizures in a day severe headache Kevin Esparza MD Emergency Physician [facility] Prescriptions: No Action aripiprazole [Abilify] 20 mg tablet 20 mg PO DAILY 30 Days Qty: 30 0RF aripiprazole [Abilify] 5 mg Tablet 5 mg PO DAILY Rx Instructions: Take with 20 mg tablet for a total of 25 mg carbamazepine 200 mg Tablet Extended Release 12 Hr 400 mg PO DAILY olanzapine 2.5 mg tablet 2.5 mg PO BEDTIME propranolol 10 mg tablet 10 - 20 mg PO BID PRN (Reason: anxiety, akithisia) Qty: 30 0RF lamotrigine 200 mg tablet 200 mg PO BID Qty: 60 0RF methylphenidate HCl 10 mg tablet 15 mg PO BID 14 Days Qty: 42 0RF thiamine HCl (vitamin B1) 100 mg tablet 100 mg PO DAILY Qty: 30 1RF lamotrigine 150 mg tablet 150 mg PO BID topiramate 50 mg tablet 100 mg PO BID gabapentin 300 mg Capsule 600 mg PO BEDTIME gabapentin 300 mg Capsule 300 mg PO BID@0900,1700 carbamazepine 200 mg capsule, ER multiphase 12 hr 200 mg PO BEDTIME carbamazepine 300 mg capsule, ER multiphase 12 hr 300 mg PO BEDTIME Rx Instructions: TOTAL BEDTIME DOSE = 500 MG trazodone 100 mg tablet 100 - 300 mg PO BEDTIME PRN (Reason: insomnia) Discharge Date/Time: 03/27/25 12:05 Print Language: Luxembourgish
[2025-03-27 12:04] VITALS: BP 132/74; PULSE 85; RESP 16; TEMP 36.8; O2SAT 95
== END 2025-03-27 12:05 | disposition home or self-care (01) ==
PROVIDERS: Emergency Medicine; Emergency Provider Emergency Medicine; PCP Internal Medicine
DX: S00.81XA Abrasion of other part of head, initial encounter (principal); R56.9 Unspecified convulsions; R51.9 Headache, unspecified; M54.2 Cervicalgia; X58.XXXA Exposure to other specified factors, initial encounter; Y93.9 Activity, unspecified; Y92.9 Unspecified place or not applicable; Y99.8 Other external cause status; Z79.899 Other long term (current) drug therapy
CPT/HCPCS: 36415; 70450; 70486; 72125; 80048; 80156; 85025; 99284

== ENCOUNTER → 2025-03-27 10:24 | Outpatient (BNV) | payer MEDICARE, SELFPAY | PROVIDERS: Emergency Provider Emergency Medicine; PCP Internal Medicine; Visit Provider Radiology Diagnostic Radiology | DX: M54.2 Cervicalgia (principal); S02.2XXA Fracture of nasal bones, initial encounter for closed fracture; G40.89 Other seizures | CPT/HCPCS: 72125 ==